=== PATIENT | male | born 1995 | race Caucasian/White ===

== ENCOUNTER 2017-05-30 02:58 | Emergency (ER) | payer OTHER ==
[~2017-05-30] VITALS: Ht 185.4 cm; Wt 83.1 kg
[2017-05-30 03:01] VITALS: TEMP 36.6; Ht 185.4 cm; Wt 83.1 kg
[2017-05-30] MEDS ORDERED: KETOROLAC TROMETHAMINE 30 MG/ML VIAL IV STA (03:13)
[2017-05-30] MEDS ORDERED: AMPICILLIN/SULBACTAM SOD INJ 3,000 MG in SODIUM CHLORIDE 0.9% 100ML 100 ML IV STA (03:13)
[2017-05-30] MEDS ORDERED: DEXAMETHASONE SOD INJ 10 MG/ML VIAL IV ONE (03:15)
[2017-05-30] MEDS ORDERED: SODIUM CHLORIDE 0.9% 1000ML 1,000 ML, SODIUM CHLORIDE 0.9% 1000ML 1,000 ML IV ONE (03:15)
[2017-05-30] MEDS ORDERED: ACETAMINOPHEN IV 100 ML IV ONE (03:15)
[2017-05-30] MEDS ORDERED: IBUP-1050 PO (03:28)
[2017-05-30 03:38] LABS: BASO % 0.2 %; BASO ABS # 0.04 K/uL (0-0.2); COMPLETE YES; EOS % 2.4 %; HEMATOCRIT 45.7 % (42-52); IG% 0.4 %; LYMPH % 14.5 %; LYMPH ABS # 3.16 K/uL (1.2-3.4); MEAN CELL VOLUME 85.7 fL (80-100); MEAN CORPUSCULAR HEMOGLOBIN 30.6 pg (25-34); MEAN CORPUSCULAR HGB CONC 35.7 g/dl (32-36); MEAN PLATELET VOLUME 9.5 fL (7.4-10.4); MONO % 8.6 %; NEUT % 73.9 %; PLATELET COUNT 210 K/uL (130-400); RED BLOOD COUNT 5.33 M/uL (4.7-6.1); WHITE BLOOD COUNT 21.79 K/uL (4.8-10.8)
[2017-05-30 03:51] LABS: BUN/CREATININE RATIO 17.3 (10-20); CALCIUM 8.5 mg/dl (8.5-10.1); CREATININE 0.83 mg/dl (0.60-1.40); POTASSIUM 3.7 mmol/L (3.5-5.1)
[2017-05-30 04:50] VITALS: BP 123/78; PULSE 77; O2SAT 99
--- NOTE | 2017-05-30 07:18 | EMERGENCY ROOM VISIT NOTE ---
History First contact with patient: 03:08 Chief Complaint: SHORTNESS OF BREATH Stated Complaint: CAN'T BREATHE Nursing Triage Summary: Patient reports recent abx finished course for strep throat. Patient reports swelling in back of throat and difficulty breathing when lying flat. Patient has swelling to left side of back of throat. History of Present Illness The patient is a 21 year old male who presents to the Emergency Room with complaints of severe sore throat symptoms. The patient was diagnosed with strep pharyngitis about a week ago and completed a 7 day course of clindamycin yesterday. The patient states that he took a nap around 15 hours ago, and woke up around 8 hours ago with worsening pain. The patient feels swelling in his throat as well as left-sided throat pain. The patient's discomfort worsens when he lays flat. He has had intermittent fever at home. He is handling his own secretions and is able to talk as normal. He does not report chronic medical disease. He rates his discomfort a 9/10. Review of Systems More than 10 systems were reviewed and otherwise negative with the exception of history of present illness. Past Medical/Surgical History No chronic medical disease Social History Smoking Status: Never Smoker Current/Historical Medications Scheduled PRN Ibuprofen (Advil), 200-600 MG PO Q4H PRN for Pain Physical Exam Vital Signs Date Time Temp Pulse Resp B/P (MAP) Pulse Ox O2 Delivery O2 Flow Rate FiO2 05/30/17 04:50 77 16 123/78 99 05/30/17 03:01 36.6 84 16 152/99 99 Room Air Physical Exam VITALS: Vitals are noted on the nurse's note and reviewed by myself. Vital signs stable. GENERAL: Mildly ill-appearing white male who is handling his own secretions. He is nontoxic. HEAD: Normocephalic atraumatic. EARS: External ear normal. External auditory canals clear, tympanic membranes pearly gonzalez without erythema or effusion bilaterally. EYES: Pupils equal round and reactive to light and accommodation. Conjunctivae without injection, sclerae without icterus. Extraocular movements intact. NOSE: Patent, turbinates without inflammation or discharge. MOUTH: Mucous membranes moist. Tonsils are significantly enlarged at 4+ and touching midline. The uvula is midline. There is soft palate edema concerning for abscess. The airway is patent. NECK: Supple without nuchal rigidity. Shotty lymphadenopathy HEART: Regular rate and rhythm without murmurs gallops or rubs. LUNGS: Clear to auscultation bilaterally without wheezes, rales or rhonchi. No retractions or accessory muscle use. Medical Decision & Procedures Laboratory Results 05/30/17 03:15 Red Blood Count 5.33, Mean Corpuscular Volume 85.7, Mean Corpuscular Hemoglobin 30.6, Mean Corpuscular Hemoglobin Concent 35.7, Mean Platelet Volume 9.5, Neutrophils (%) (Auto) 73.9, Lymphocytes (%) (Auto) 14.5, Monocytes (%) (Auto) 8.6, Eosinophils (%) (Auto) 2.4, Basophils (%) (Auto) 0.2, Neutrophils # (Auto) 16.11, Lymphocytes # (Auto) 3.16, Monocytes # (Auto) 1.87, Eosinophils # (Auto) 0.53, Basophils # (Auto) 0.04 05/30/17 03:15 Test 05/30/17 03:15 White Blood Count 21.79 K/uL (4.8-10.8) Red Blood Count 5.33 M/uL (4.7-6.1) Hemoglobin 16.3 g/dL (14.0-18.0) Hematocrit 45.7 % (42-52) Mean Corpuscular Volume 85.7 fL (80-100) Mean Corpuscular Hemoglobin 30.6 pg (25-34) Mean Corpuscular Hemoglobin Concent 35.7 g/dl (32-36) Platelet Count 210 K/uL (130-400) Mean Platelet Volume 9.5 fL (7.4-10.4) Neutrophils (%) (Auto) 73.9 % Lymphocytes (%) (Auto) 14.5 % Monocytes (%) (Auto) 8.6 % Eosinophils (%) (Auto) 2.4 % Basophils (%) (Auto) 0.2 % Neutrophils # (Auto) 16.11 K/uL (1.4-6.5) Lymphocytes # (Auto) 3.16 K/uL (1.2-3.4) Monocytes # (Auto) 1.87 K/uL (0.11-0.59) Eosinophils # (Auto) 0.53 K/uL (0-0.5) Basophils # (Auto) 0.04 K/uL (0-0.2) RDW Standard Deviation 38.2 fL (36.4-46.3) RDW Coefficient of Variation 12.1 % (11.5-14.5) Immature Granulocyte % (Auto) 0.4 % Immature Granulocyte # (Auto) 0.08 K/uL (0.00-0.02) Anion Gap 4.0 mmol/L (3-11) Est Creatinine Clear Calc Drug Dose 160.4 ml/min Estimated GFR () 146.8 Estimated GFR (Non- 126.7 BUN/Creatinine Ratio 17.3 (10-20) Calcium Level 8.5 mg/dl (8.5-10.1) Total Bilirubin 0.7 mg/dl (0.2-1) Aspartate Amino Transf (AST/SGOT) 23 U/L (15-37) Alanine Aminotransferase (ALT/SGPT) 44 U/L (12-78) Alkaline Phosphatase 103 U/L (45-117) Total Protein 8.5 gm/dl (6.4-8.2) Albumin 4.3 gm/dl (3.4-5.0) Globulin 4.2 gm/dl (2.5-4.0) Albumin/Globulin Ratio 1.0 (0.9-2) Monoscreen NEG (NEG) Medications Administered Medications (Trade) Dose Ordered Sig/Ricki Route Start Time Stop Time Status Last Admin Dose Admin Dexamethasone Sodium Phosphate (Decadron Inj) 10 mg NOW ONCE IV 05/30/17 03:15 05/30/17 03:17 DC 05/30/17 03:47 10 MG Ketorolac Tromethamine (Toradol Inj) 30 mg NOW STAT IV 05/30/17 03:13 05/30/17 03:17 DC 05/30/17 03:48 30 MG Sodium Chloride/ Sodium Chloride 2,000 ml @ 999 mls/hr Q2H1M ONCE IV 05/30/17 03:15 05/30/17 05:15 DC 05/30/17 03:15 999 MLS/HR Ampicillin Sodium/ Sulbactam Sodium 3000 mg/Sodium Chloride 108 ml @ 200 mls/hr NOW STAT IV 05/30/17 03:13 05/30/17 03:45 DC 05/30/17 03:13 200 MLS/HR Acetaminophen 100 ml @ 400 mls/hr NOW ONCE IV 05/30/17 03:15 05/30/17 03:29 DC 05/30/17 03:48 400 MLS/HR ED Course Physical exam and history were performed. Nursing notes, EMR, and Medication List were personally reviewed. Patient appears to have a left-sided peritonsillar abscess after being treated with clindamycin for strep throat. The patient does not have impending airway compromise. He is able to phonate and is without trismus. He does have noted soft palate edema concerning for the abscess. IV access was established and labs were obtained. The patient was treated with IV steroids, IV pain medication, and IV antibiotics. He was hydrated with 2 L saline. The patient's blood work is as above and was reviewed. He does have a significantly elevated white blood cell count of 22,000. He does not have a gross anemia, bandemia, or significant electrolyte imbalance. His Monospot is negative. I discussed the case with the on-call ENT, Dr. Gutierrez, who indicated that he would not be coming into the ER this morning to see the patient. The patient is to follow-up with Dr Gutierrez in his office at 8 AM, roughly 3-1/2 hours from now, for further care and management. I discussed this recommendation with the patient, who does feel much better after hydration and medication. The patient will be given information to contact the ER if he has any difficulty with seeing Dr. Gutierrez this morning. The patient was otherwise invited back to the ER anytime and voiced understanding of this plan. He rated his discomfort a 7/75 departure. The chart was completed utilizing [employer] Speech Voice Recognition Software. Grammatical errors, random word insertions, pronoun errors, and incomplete sentences are an occasional consequence of this system due to software limitations, ambient noise, and hardware issues. Any formal questions or concerns about the content, text, or information contained within the body of this dictation should be directly addressed to the provider for clarification. . Medical Decision Differential diagnosis: Etiologies such as viral syndrome, tonsillitis, streptococcal pharyngitis, mononucleosis, peritonsillar abscess, retropharyngeal abscess, otitis, pneumonia , influenza, as well as others were entertained. Medication Reconcilliation Current Medication List: was personally reviewed by me Blood Pressure Screening Patient's blood pressure: Normal blood pressure Impression Primary Impression: Peritonsillar abscess Departure Information Dispostion Home / Self-Care Condition GOOD Referrals Damaso Gutierrez D.O. Forms HOME CARE DOCUMENTATION FORM, IMPORTANT VISIT INFORMATION Patient Instructions Peritonsillar Abscess, My [facility] Additional Instructions You were seen and evaluated today on an emergency basis only. This is not a substitute for, or an effort to provide, complete comprehensive medical care. It is not possible to recognize and treat all injuries or illnesses in a single emergency department visit. For this reason it is recommended that you followup with [facility], Dr Gutierrez's office, at 8am (roughly 3 hours from now). Do not eat or drink anything until you are seen by Dr Gutierrez. We did speak directly with Dr. Gutierrez from the emergency department. If you have difficulty with being seen at 8am please call back to the emergency department at [phone] and ask for a community case manager. You are welcome to return to the emergency department anytime with new, worsening, or concerning symptoms.
== END 2017-05-30 04:52 | disposition home or self-care (01) ==
LOC: C.EDB 02:59
DX: J36 Peritonsillar abscess (principal)

== ENCOUNTER 2017-06-04 13:23 | Emergency (ER) | payer OTHER ==
[~2017-06-04] VITALS: Ht 185.4 cm; Wt 82.1 kg
[~2017-06-04 13:23] MED LIST: IBUP-1050 PO
[2017-06-04 13:27] VITALS: TEMP 36.5; Ht 185.4 cm; Wt 82.1 kg
[2017-06-04] MEDS ORDERED: SODIUM CHLORIDE 0.9% 1000ML 1,000 ML IV STA (13:46)
--- NOTE | 2017-06-04 13:55 | EMERGENCY ROOM VISIT NOTE ---
History First contact with patient: 13:36 Chief Complaint: CARDIAC ASSESSMENT Stated Complaint: SOB, TINGLING/NUMB IN LEGS, LIGHTHEADED History of Present Illness The patient is a 21 year old male who presents to the Emergency Room with complaints of short of breath for the past few days. Patient states his symptoms initially started about a week ago associated with a sore throat and swelling in his throat, states he was diagnosed with tonsillitis and is being treated by ENT, on Augmentin and prednisone for the past several days and states his throat has been improving greatly. Over the past few nights, the patient states he has had a feeling of not being able to breathe when he is lying down in bed, states he feels like he is not getting enough air. This causes him to feel lightheaded, tingling in his arms and legs, and like he might pass out. He states he feels better if he gets up and walks around or distracts himself. He denies any chest pain, palpitations, syncope, abdominal pain, nausea or vomiting, fevers/chills, urinary symptoms, itching or rash. Review of Systems A complete 10 point review of systems was reviewed with the patient with pertinent positives and negatives as per history of present illness. All else were negative. Past Medical/Surgical History Tonsillitis Social History Smoking Status: Never Smoker Alcohol Use: none Drug Use: none Marital Status: single Occupation Status: [employer] student Current/Historical Medications Scheduled Amoxicillin & Pot Clavulanate (Augmentin 875-125 mg), 1 TAB PO BID Prednisone (Prednisone), 10 MG PO DIRECTED Allergies NKA Physical Exam Vital Signs Date Time Temp Pulse Resp B/P (MAP) Pulse Ox O2 Delivery O2 Flow Rate FiO2 06/04/17 18:49 88 20 132/78 98 06/04/17 17:47 88 06/04/17 17:20 79 16 135/64 98 Room Air 06/04/17 15:16 83 16 141/22 98 Room Air 06/04/17 14:17 76 12 135/81 99 81 155/70 100 164/79 06/04/17 14:07 Room Air 06/04/17 14:07 Room Air 06/04/17 13:48 93 06/04/17 13:27 36.5 93 20 133/94 99 Room Air Physical Exam CONSTITUTIONAL: No acute distress. Well appearing and well nourished. Alert and oriented X 4 with normal affect. HEENT: Normocephalic, atraumatic. Pupils equal, round and reactive to light, EOMI. TMs normal. Pharynx mildly erythematous and moderate bilateral tonsillar swelling, no exudate, uvula is midline, no trismus. Moist mucous membranes. NECK: Supple, full active range of motion without discomfort. No cervical adenopathy. RESPIRATORY: Clear to auscultation bilaterally with no wheezing, crackles, rhonchi or stridor. Equal expansion bilaterally. CARDIOVASCULAR: Regular rate and rhythm with no murmurs, rubs or gallops. Normal peripheral perfusion. No edema. GASTROINTESTINAL: Soft, nontender, nondistended. Bowel sounds present in all quadrants. MUSCULOSKELETAL: Full range of motion of all joints without discomfort. INTEGUMENTARY: No rash or other significant dermatologic conditions noted. NEUROLOGIC: Cranial nerves II-XII grossly intact. No focal neurologic deficits noted. Normal strength, normal sensation, normal coordination, normal gait, normal speech. Medical Decision & Procedures ER Provider Diagnostic Interpretation: SOFT TISSUE NECK WITH HISTORY: 21 years-old Male eval retropharyngeal abscess acute stroke pain with concern for retropharyngeal abscess COMPARISON: None available TECHNIQUE: Multiple axial CT images of the soft tissues of the neck were obtained following the intravenous administration of 116 mL Optiray 320. A dose lowering technique was used consistent with the principals of ALARA. FINDINGS: There is an irregular peripherally enhancing collection measuring 1.0 x 0.6 x 1.2 cm within the left peritonsillar tissues, nicely seen on image 166 of series 3. Bilateral palatine tonsils are moderately enlarged causing moderate narrowing of the adjacent airway. No retropharyngeal abscess identified. Adenoid tonsils and lingual tonsils are mildly enlarged. The epiglottis, aryepiglottic folds and true vocal cords appear to be within normal limits. Mildly prominent bilateral level 2 lymph nodes are likely reactive. Soft tissues are unremarkable. The orbits and imaged intracranial structures are unremarkable. Mild right-sided ethmoid sinus disease. Mastoid air cells and middle ear cavities are generally clear. There is straightening of the normal cervical lordosis. No fracture identified. No dominant thyroid nodule. Lung apices are clear. IMPRESSION: Moderate enlargement of the bilateral palatine tonsils suggests tonsillitis with associated moderate narrowing of the oropharynx. Small peripherally enhancing collection measuring up to 1.2 cm adjacent to the left palatine tonsil suggests developing peritonsillar abscess without retropharyngeal extension. Laboratory Results 06/04/17 14:00 Red Blood Count 5.39, Mean Corpuscular Volume 85.2, Mean Corpuscular Hemoglobin 30.6, Mean Corpuscular Hemoglobin Concent 35.9, Mean Platelet Volume 9.6, Neutrophils (%) (Auto) 73.1, Lymphocytes (%) (Auto) 16.4, Monocytes (%) (Auto) 8.3, Eosinophils (%) (Auto) 1.0, Basophils (%) (Auto) 0.3, Neutrophils # (Auto) 8.55, Lymphocytes # (Auto) 1.92, Monocytes # (Auto) 0.97, Eosinophils # (Auto) 0.12, Basophils # (Auto) 0.04 06/04/17 14:00 Test 06/04/17 14:00 06/04/17 14:29 White Blood Count 11.71 K/uL (4.8-10.8) Red Blood Count 5.39 M/uL (4.7-6.1) Hemoglobin 16.5 g/dL (14.0-18.0) Hematocrit 45.9 % (42-52) Mean Corpuscular Volume 85.2 fL (80-100) Mean Corpuscular Hemoglobin 30.6 pg (25-34) Mean Corpuscular Hemoglobin Concent 35.9 g/dl (32-36) Platelet Count 243 K/uL (130-400) Mean Platelet Volume 9.6 fL (7.4-10.4) Neutrophils (%) (Auto) 73.1 % Lymphocytes (%) (Auto) 16.4 % Monocytes (%) (Auto) 8.3 % Eosinophils (%) (Auto) 1.0 % Basophils (%) (Auto) 0.3 % Neutrophils # (Auto) 8.55 K/uL (1.4-6.5) Lymphocytes # (Auto) 1.92 K/uL (1.2-3.4) Monocytes # (Auto) 0.97 K/uL (0.11-0.59) Eosinophils # (Auto) 0.12 K/uL (0-0.5) Basophils # (Auto) 0.04 K/uL (0-0.2) RDW Standard Deviation 38.7 fL (36.4-46.3) RDW Coefficient of Variation 12.5 % (11.5-14.5) Immature Granulocyte % (Auto) 0.9 % Immature Granulocyte # (Auto) 0.11 K/uL (0.00-0.02) D-Dimer 470 ug/L FEU (0-500) Urine Color YELLOW Urine Appearance CLEAR (CLEAR) Urine pH 7.0 (4.5-7.5) Urine Specific [place] 1.017 (1.000-1.030) Urine Protein NEG (NEG) Urine Glucose (UA) NEG (NEG) Urine Ketones NEG (NEG) Urine Occult Blood NEG (NEG) Urine Nitrite NEG (NEG) Urine Bilirubin NEG (NEG) Urine Urobilinogen NEG (NEG) Urine Leukocyte Esterase NEG (NEG) Anion Gap 9.0 mmol/L (3-11) Est Creatinine Clear Calc Drug Dose 170.7 ml/min Estimated GFR () > 150.0 Estimated GFR (Non- 129.9 BUN/Creatinine Ratio 18.5 (10-20) Calcium Level 9.1 mg/dl (8.5-10.1) Total Bilirubin 0.3 mg/dl (0.2-1) Direct Bilirubin < 0.1 mg/dl (0-0.2) Aspartate Amino Transf (AST/SGOT) 20 U/L (15-37) Alanine Aminotransferase (ALT/SGPT) 60 U/L (12-78) Alkaline Phosphatase 93 U/L (45-117) Total Protein 8.8 gm/dl (6.4-8.2) Albumin 4.3 gm/dl (3.4-5.0) Bedside Glucose 93 mg/dl (70-99) Medications Administered Medications (Trade) Dose Ordered Sig/Ricki Route Start Time Stop Time Status Last Admin Dose Admin Sodium Chloride 1,000 ml @ 999 mls/hr Q1H1M STAT IV 06/04/17 13:46 06/04/17 14:46 DC 06/04/17 14:45 999 MLS/HR Dexamethasone Sodium Phosphate (Decadron Inj) 10 mg NOW ONCE IV 06/04/17 17:15 06/04/17 17:16 DC 06/04/17 17:15 10 MG Ampicillin Sodium/ Sulbactam Sodium 3000 mg/Sodium Chloride 108 ml @ 200 mls/hr ONE ONCE IV 06/04/17 17:15 06/04/17 17:47 DC 06/04/17 17:41 200 MLS/HR Medical Decision CC: Patient presenting with complaint of shortness of breath/orthopnea Interpretation of Labs: Leukocytosis (improving), no anemia, no significant electrolyte abnormalities, normal renal function. Negative d-dimer. Differential Diagnosis: Includes, but not limited to peritonsillar abscess, retropharyngeal abscess, pneumonia, URI, allergic reaction, pharyngeal swelling , PE, anxiety, among others. Medication Reconciliation: I attest that I have personally reviewed the patient' s current medication list. Vital signs review: I reviewed the patient's vital signs and interpret them as follows: T: Afebrile; BP: Hypertensive; HR: Tachycardic; RR: Within normal limits; Pulse Ox: Within normal limits on room air. Summary: Patient was evaluated at bedside, history of physical exam performed. Patient is alert and in no acute distress, no signs of increased work of breathing or respiratory distress, resting calmly in the stretcher. The patient's airway is patent, no stridor or wheezing, lungs are clear with good air movement. Evaluation of his throat shows moderate bilateral edema, no uvular deviation, no trismus, and no unilateral swelling. Patient's voice is normal. Review of the chart reveals the patient was evaluated in this emergency department on 05/30 and diagnosed with a left peritonsillar abscess. He had follow-up with ENT that day. Patient states that ENT told him there was nothing to be drained from his throat , and he was placed on Augmentin and prednisone, which she has been taking. Patient does report that his overall symptoms of throat swelling has greatly improved since being on antibiotics and steroids. Orders were placed at bedside for labs, IV fluids, EKG, chest x-ray, CT neck soft tissue with IV contrast to evaluate for retropharyngeal abscess. Patient discussed with Dr. Daley, who agrees with my assessment and plan. Labs reviewed as above, significantly improved leukocytosis. No acute abnormalities. CT imaging is negative for retropharyngeal abscess, does show a small left peritonsillar abscess and moderate bilateral tonsillar swelling. The patient was given an additional dose of IV Unasyn, as well as a dose of IV Decadron. Upon further questioning of the patient, it seems that he has been taking his prednisone incorrectly, instead of taking 40 mg once daily, he has taken 10 mg 4 times a day, noting he has been taking some of this before bed. I educated the patient on proper use of his prednisone taper. I also instructed him to take the medication in the morning, as the steroid may be interfering with his sleep. The patient verbalized understanding. I discussed the patient with Dr. Gutierrez's nurse Criselda, who relayed the patient' s information to him. He states he would not change any of the patient's management, and patient should keep his follow-up appointment on Sunday. I discussed all results with the patient and plan for discharge. I did encourage him to keep his follow-up appointment on Sunday, he was comfortable with this plan. Patient reassessed multiple times throughout ED stay, he reports he is feeling improved. Patient was updated on all results and plan for discharge, with emphasis on his follow-up scheduled for Sunday, which I did strongly encourage him to keep. The patient was also given return precautions should his symptoms worsen, he verbalized understanding. Patient was discharged home in stable condition and ambulatory. Medication Reconcilliation Current Medication List: was personally reviewed by me Blood Pressure Screening Patient's blood pressure: Elevated blood pressure Blood pressure disposition: Elevated BP felt to be situational Impression Primary Impression: Orthopnea Additional Impression: Peritonsillar abscess Departure Information Dispostion Home / Self-Care Condition GOOD Referrals No Doctor, Assigned (PCP) Damaso Gutierrez D.O. Patient Instructions ED Peritonsillar Infec Abx No I Yana, My [facility] Additional Instructions Continue taking your Augmentin as prescribed, until you complete the course. You should take a daily probiotic to help protect your gut health while on the antibiotics. Continue taking the prednisone taper as prescribed. Take this once a day, with food, in the morning. Drink plenty of fluids to stay well hydrated. Sleep with your head propped up on some pillows or in a recliner to help improve your comfort when sleeping. Keep your scheduled follow-up with ENT on Sunday, or call for a sooner appointment if you feel your symptoms are worsening. Please return to the emergency department for increased difficulties in breathing, chest pain, wheezing or high pitched noises with breathing, difficulty swallowing, muffled voice, or fever/chills. School Instructions Return To School: 1 day Problem Qualifiers
[2017-06-04] MEDS ORDERED: PRED10TA PO (14:00)
[2017-06-04] MEDS ORDERED: AMOX875T PO (14:00)
[2017-06-04 14:08] LABS: BASO % 0.3 %; BASO ABS # 0.04 K/uL (0-0.2); COMPLETE YES; HEMATOCRIT 45.9 % (42-52); IG% 0.9 %; LYMPH % 16.4 %; LYMPH ABS # 1.92 K/uL (1.2-3.4); MEAN CELL VOLUME 85.2 fL (80-100); MEAN CORPUSCULAR HEMOGLOBIN 30.6 pg (25-34); MEAN CORPUSCULAR HGB CONC 35.9 g/dl (32-36); MEAN PLATELET VOLUME 9.6 fL (7.4-10.4); MONO % 8.3 %; NEUT % 73.1 %; PLATELET COUNT 243 K/uL (130-400); RED BLOOD COUNT 5.39 M/uL (4.7-6.1); WHITE BLOOD COUNT 11.71 K/uL (4.8-10.8)
[2017-06-04 14:33] LABS: ALT/SGPT 60 U/L (12-78); AST/SGOT 20 U/L (15-37); BLOOD UREA NITROGEN 14 mg/dl (7-18); BUN/CREATININE RATIO 18.5 (10-20); CALCIUM 9.1 mg/dl (8.5-10.1); CARBON DIOXIDE 24 mmol/L (21-32); CHLORIDE 105 mmol/L (98-107); CREATININE 0.78 mg/dl (0.60-1.40); GLUCOSE 95 mg/dl (70-99); POTASSIUM 3.4 mmol/L (3.5-5.1); SODIUM 138 mmol/L (136-145)
[2017-06-04 14:35] LABS: ALKALINE PHOSPHATASE 93 U/L (45-117)
[2017-06-04 14:41] LABS: URINE APPEARANCE CLEAR (CLEAR); URINE BILIRUBIN NEG (NEG); URINE COLOR YELLOW; URINE NITRITE NEG (NEG); URINE SPECIFIC GRAVITY 1.017 (1.000-1.030); UROBILINOGEN NEG (NEG)
[2017-06-04 14:46] LABS: MANUAL MICROSCOPIC REQUIRED? NO; REVIEW REQ? NO
--- NOTE | 2017-06-04 15:15 | DIAGNOSTIC IMAGING REPORT ---
CHEST 2 VIEWS ROUTINE CLINICAL HISTORY: Altered mental status. Weakness. Shortness of breath. COMPARISON STUDY: No previous studies for comparison. FINDINGS: Lung volumes are normal. Lungs are clear. No pneumothorax or pleural effusion is present. Pulmonary vascularity is normal. Cardiomediastinal silhouette is normal. IMPRESSION: No acute cardiopulmonary findings. Electronically signed by: Greg Ross M.D. 06/04/2017 3:13 PM Dictated Date/Time: 06/04/2017 3:13 PM
[2017-06-04] MEDS ORDERED: OPTIRAY 320 IV PRN (15:30)
--- NOTE | 2017-06-04 16:26 | DIAGNOSTIC IMAGING REPORT ---
SOFT TISSUE NECK WITH HISTORY: 21 years-old Male eval retropharyngeal abscess acute stroke pain with concern for retropharyngeal abscess COMPARISON: None available TECHNIQUE: Multiple axial CT images of the soft tissues of the neck were obtained following the intravenous administration of 116 mL Optiray 320. A dose lowering technique was used consistent with the principals of PAUL. FINDINGS: There is an irregular peripherally enhancing collection measuring 1.0 x 0.6 x 1.2 cm within the left peritonsillar tissues, nicely seen on image 166 of series 3. Bilateral palatine tonsils are moderately enlarged causing moderate narrowing of the adjacent airway. No retropharyngeal abscess identified. Adenoid tonsils and lingual tonsils are mildly enlarged. The epiglottis, aryepiglottic folds and true vocal cords appear to be within normal limits. Mildly prominent bilateral level 2 lymph nodes are likely reactive. Soft tissues are unremarkable. The orbits and imaged intracranial structures are unremarkable. Mild right-sided ethmoid sinus disease. Mastoid air cells and middle ear cavities are generally clear. There is straightening of the normal cervical lordosis. No fracture identified. No dominant thyroid nodule. Lung apices are clear. IMPRESSION: Moderate enlargement of the bilateral palatine tonsils suggests tonsillitis with associated moderate narrowing of the oropharynx. Small peripherally enhancing collection measuring up to 1.2 cm adjacent to the left palatine tonsil suggests developing peritonsillar abscess without retropharyngeal extension. The above report was generated using voice recognition software. It may contain grammatical, syntax or spelling errors. Electronically signed by: Marcus Davis M.D. 06/04/2017 4:25 PM Dictated Date/Time: 06/04/2017 4:18 PM
[2017-06-04] MEDS ORDERED: DEXAMETHASONE SOD INJ 10 MG/ML VIAL IV ONE (17:15)
[2017-06-04] MEDS ORDERED: AMPICILLIN/SULBACTAM SOD INJ 3,000 MG in SODIUM CHLORIDE 0.9% 100ML 100 ML IV ONE (17:15)
[2017-06-04 18:49] VITALS: BP 132/78; PULSE 88; O2SAT 98
== END 2017-06-04 18:50 | disposition home or self-care (01) ==
LOC: C.EDB 13:25
DX: R06.01 Orthopnea (principal); J36 Peritonsillar abscess

== ENCOUNTER 2017-08-26 07:56 | Emergency (ER) | payer OTHER ==
[~2017-08-26] VITALS: Ht 185.4 cm; Wt 82.1 kg
[~2017-08-26 07:56] MED LIST changes: -IBUP-1050 PO; +IBUP-1450 PO; +TRAMTAB5 PO
[2017-08-26 07:58] VITALS: BP 134/62; PULSE 98; TEMP 36.6; O2SAT 96; Ht 185.4 cm; Wt 82.1 kg
[2017-08-26] MEDS ORDERED: AMOXICILLIN/CLAVULANATE TAB 875 MG TAB PO ONE (08:15)
[2017-08-26] MEDS ORDERED: AMOX875T PO (08:15)
--- NOTE | 2017-08-26 10:16 | EMERGENCY ROOM VISIT NOTE ---
History Report prepared by Dre: Emile Zavala Under the Supervision of: Mauri HannahO. First contact with patient: 08:03 Chief Complaint: SORETHROAT Stated Complaint: SWOLLEN TONSILS/THROAT,PAIN WHEN SWALLOWING History of Present Illness The patient is a 21 year old male who presents to the Emergency Room with complaints of worsening sore throat starting two days ago. The patient states that his tonsils are swollen, and the pain is worsened with swallowing. He states that he went to his PCP, and they did a strep test and CBC which both came back normal. The patient reports that he has been having recurring swollen tonsils and was last here June 23 and was hospitalized. The patient reports that he currently lives in [facility], and states that every time that he comes back to [place] he gets a sore throat. Pt denies headache, change in vision, fevers, runny nose, cough, ear pain, chest pain, shortness of breath , nausea, vomiting, diarrhea, pain with urination, and melena. Patient has been admitted before for a peritonsillar abscess. Source of History: patient Onset: two days ago Position: throat Timing: worsening Modifying Factors (Worsening): other (swallowing) Associated Symptoms: No fevers, No cough Review of Systems See HPI for pertinent positives & negatives. A total of 10 systems reviewed and were otherwise negative. Past Medical & Surgical Medical Problems: (1) No active medical problems Family History No pertinent family history Social History Smoking Status: Never Smoker Alcohol Use: occasionally Drug Use: none Marital Status: single Housing Status: lives with roommate Occupation Status: [employer] student Current/Historical Medications Scheduled Amoxicillin & Pot Clavulanate (Augmentin 875-125 mg), 875 MG PO BID Allergies Coded Allergies: No Known Allergies (Unverified , 08/26/17) Physical Exam Vital Signs Date Time Temp Pulse Resp B/P (MAP) Pulse Ox O2 Delivery O2 Flow Rate FiO2 08/26/17 07:58 36.6 98 20 134/62 96 Room Air Physical Exam GENERAL: Sitting up in bed, alert, well appearing, well nourished, no distress, non-toxic EYE EXAM: normal conjunctiva. OROPHARYNX: Tonsils are hypertrophic and erythematous. Faint exudates bilaterally. Lips, buccal mucosa, and tongue normal and mucous membranes are moist NECK: supple, no nuchal rigidity, no adenopathy, non-tender LUNGS: Clear to auscultation. Normal chest wall mechanics HEART: no murmurs, S1 normal and S2 normal ABDOMEN: abdomen soft, non-tender, normo-active bowel sounds, no masses, no rebound or guarding. UPPER EXTREMITIES: upper extremities are grossly normal. LOWER EXTREMITIES: No pitting edema. NEURO EXAM: Normal sensorium. Medical Decision & Procedures Medications Administered Medications (Trade) Dose Ordered Sig/Ricki Route Start Time Stop Time Status Last Admin Dose Admin Prednisone (PredniSONE TAB) 60 mg NOW STAT PO 08/26/17 08:10 08/26/17 08:12 DC 08/26/17 08:21 60 MG Amoxicillin/ Clavulanate Potassium (Augmentin Tab) 875 mg NOW ONCE PO 08/26/17 08:15 08/26/17 08:16 DC 08/26/17 08:21 875 MG ED Course ED COURSE: Vital signs were reviewed and showed normal vitals. The patients medical record was reviewed The above diagnostic studies were performed and reviewed. ED treatments and interventions as stated above. 0803: The patient was evaluated in room A12. A complete history and physical examination was performed. 0810: Prednisone 60mg PO 0815: Augmentin 875mg PO 0820: Upon reevaluation, the patient is doing well.I discussed my findings with the patient and he understands and agrees with the treatment plan. Based on the patients age, coexisting illnesses, and exam findings the decision to treat as an outpatient was made. The patient remained stable while under my care. The patient appeared well at the time of discharge. Medical Decision Differential diagnosis includes etiologies such as viral syndrome, tonsillitis, streptococcal pharyngitis, mononucleosis, peritonsillar abscess, retropharyngeal abscess, otitis, pneumonia, influenza, as well as others were entertained. Patient is a 21-year-old male with past medical history of peritonsillar abscess that presents to ER for sore throat. He was seen by his PCP and had a rapid strep done which was negative. He also admits that he had unremarkable CBC. On exam his tonsils are enlarged. He is able tolerate his secretions. Normal phonation. Normal range of motion of neck. No submandibular swelling to suggest Devin's angina. Patient was given steroids and Augmentin. He was unhappy as we were unable to give him a clear cause of his recurrent tonsillitis. I did discuss with his mother. Recommended following up with ENT. He notes the last time he was there they recommended having his tonsils removed and he did not want to do this. As he is well-appearing with normal phonation tolerating secretions without signs of abscess I updated him at bedside and recommended following back up with ENT has now patient. Tylenol and Motrin as needed for pain. Discussed with Pt concerning signs and symptoms to watch out for. Pt was instructed to follow up with their PCP and discussed with the patient their option to return to the ED at anytime for persistent or worsening symptoms. The appropriate anticipatory guidance and out-patient management, including indications for return to the emergency department, were explained at length to the patient and understood. Medication Reconcilliation Current Medication List: was personally reviewed by me Blood Pressure Screening Patient's blood pressure: Normal blood pressure Impression Primary Impression: Tonsillitis Scribe Attestation The scribe's documentation has been prepared under my direction and personally reviewed by me in its entirety. I confirm that the note above accurately reflects all work, treatment, procedures, and medical decision making performed by me. Departure Information Dispostion Home / Self-Care Prescriptions Amoxicillin & Pot Clavulanate (Augmentin 875-125 mg) 1 Tab Tab 875 MG PO BID for 10 Days, TAB Prov: Michael Moore, DO 08/26/17 Referrals No Doctor, Assigned (PCP) Forms HOME CARE DOCUMENTATION FORM, IMPORTANT VISIT INFORMATION Patient Instructions ED Strep Pharyngitis [facility] Additional Instructions Please follow up with your primary care doctor with in the next 24 hours. Any worsening of your symptoms, please return to the ED immediately. This includes any fevers greater than 100.4, worsening pain, chest pain, shortness breath, persistent nausea, vomiting, unable to eat or drink, or any other concerning signs or symptoms from your standpoint. Please take antibiotics as prescribed. These follow-up with ENT.
== END 2017-08-26 08:24 | disposition home or self-care (01) ==
LOC: C.EDB 07:57 → C.EDA 08:24
DX: J03.90 Acute tonsillitis, unspecified (principal)

== ENCOUNTER 2017-08-27 17:14 | Emergency (ER) | payer OTHER ==
[~2017-08-27] VITALS: Ht 185.4 cm; Wt 81.0 kg
[~2017-08-27 17:14] MED LIST changes: +AMOX875T PO; -IBUP-1450 PO; -TRAMTAB5 PO
[2017-08-27 17:38] VITALS: TEMP 36.9; Ht 185.4 cm; Wt 81.0 kg
--- NOTE | 2017-08-27 18:10 | EMERGENCY ROOM VISIT NOTE ---
History First contact with patient: 17:42 Chief Complaint: THROAT PAIN/INJURY Stated Complaint: CHILLS,SWOLLEN TONSILS,TROUBLE BREATHING,HARD TO S History of Present Illness The patient is a 21 year old male who presents to the Emergency Room with complaints of persistent swollen tonsils. The patient was seen here yesterday for the same symptoms. He was not happy with his treatment. He states he felt like he was rushed in and out of the room. The patient states that he has a relative who is a physician and he told her with dosing he was given of Augmentin. He told her he was only taking 875 mg once a day. Looking at the prescription bottle it does say 875 twice a day. The patient states that he went to [facility] this morning again for his symptoms and was placed on prednisone 20 mg daily. He took one dose today. The patient states that he has had swollen tonsils ever since he started at [employer] in fall. He states when he was home in [facility] over winter break he was fine. He states as soon as he came back he started with symptoms again of swollen tonsils and difficulty swallowing secondary to the enlarged tonsils. The patient denies any fever but does admit to some chills. The patient denies any other URI symptoms of head congestion, ear pain, cough. The patient does admit to taking Zyrtec intermittently but is not taking it on a daily basis. He already has an appointment set up with Dr. Anton on September 06 and an appointment with the glue jointer feeder at [facility] on September 11. He is wondering if those appointments can be moved up. Review of Systems 10 system review was performed and was negative unless stated otherwise history of present illness. Past Medical/Surgical History Medical Problems: (1) No active medical problems Family History No pertinent family history Social History Smoking Status: Never Smoker Alcohol Use: occasionally Drug Use: none Marital Status: single Housing Status: lives with roommate Occupation Status: [employer] student Current/Historical Medications Scheduled Amoxicillin & Pot Clavulanate (Augmentin 875-125 mg), 875 MG PO BID Physical Exam Vital Signs Date Time Temp Pulse Resp B/P (MAP) Pulse Ox O2 Delivery O2 Flow Rate FiO2 08/27/17 17:38 36.9 97 20 142/62 97 Room Air Physical Exam PHYSICAL EXAM: Vital Signs were reviewed: Reviewed Nurse's notes and agree. Oxygen saturation is 97 % on room air which is normal . GENERAL: 21-year-old male appears in no acute distress. MENTAL STATUS: Alert, oriented, coherent. EARS: Canals clear. TMs good light reflex, no erythema or fluid level noted. NOSE: Nasal mucosa with moderate erythema engorgement. PHARYNX: Minimal erythema. Tonsils are 2+ without exudate. Uvula is midline. Airway is adequate. NECK: Supple, non-tender. No lymphadenopathy noted. LUNGS: Clear to auscultation without wheezes rales or rhonchi. CARDIAC: Regular rate and rhythm without murmur. SKIN: No rashes noted. Medical Decision & Procedures ED Course The patient was evaluated. The patient's EMR medication list were reviewed. The patient did not have a strep test done yesterday but he is already on antibiotics therefore that is not an option at this time. I do not feel that this is infectious in nature. I feel that the steroids that he was placed on today will help him. He did receive a loading dose of 60 mg yesterday when he was in the ER which was adequate treatment at that time. He also is taking Augmentin 875 mg twice a day. I spoke with the patient's relative about the patient's treatment plan and she was in agreement. I also spoke with the case assembler who will call both ENT and the glue jointer feeder tomorrow to see if they can move up his appointments. The patient was happy with treatment plan and was discharged home in stable condition. Medical Decision Differential diagnosis include viral pharyngitis, strep pharyngitis, mononucleosis, allergic rhinitis [place] Drug Monitoring Program Search Results: patient reviewed within database Medication Reconcilliation Current Medication List: was personally reviewed by me Blood Pressure Screening Patient's blood pressure: Normal blood pressure Impression Primary Impression: Recurrent tonsillitis Departure Information Dispostion Home / Self-Care Condition GOOD Referrals [facility] (PCP) Forms HOME CARE DOCUMENTATION FORM, IMPORTANT VISIT INFORMATION, WORK / SCHOOL INSTRUCTIONS Patient Instructions My [facility], Sore Throat - [facility] Additional Instructions Follow sore throat handouts instructions. Continue antibiotics as prescribed. Continue prednisone 20 mg daily. Also recommend taking Zyrtec daily. May also contact [facility] to have them check the filters on the heating system. The case assembler will call you tomorrow with earlier ENT and glue jointer feeder appointments if possible.
[2017-08-27 18:30] VITALS: BP 128/74; PULSE 77; O2SAT 98
[2017-08-28] MEDS ORDERED: PRED20TA PO (21:07)
== END 2017-08-27 18:31 | disposition home or self-care (01) ==
LOC: C.EDB 17:17 → C.EDA 18:31
DX: J03.91 Acute recurrent tonsillitis, unspecified (principal)

== ENCOUNTER 2017-08-28 19:40 | Emergency (ER) | payer OTHER ==
[~2017-08-28] VITALS: Ht 185.4 cm; Wt 81.1 kg
[2017-08-28 19:48] VITALS: TEMP 37.1; Ht 185.4 cm; Wt 81.1 kg
[2017-08-28] MEDS ORDERED: SODIUM CHLORIDE 0.9% 1000ML 1,000 ML IV STA (20:52)
--- NOTE | 2017-08-28 20:58 | EMERGENCY ROOM VISIT NOTE ---
History Report prepared by Dre: Tayla Chavez Under the Supervision of: Dr. Shira Wakefield M.D. First contact with patient: 19:57 Chief Complaint: OTHER COMPLAINT Stated Complaint: HARD TO OPEN MOUTH,NO EATING IN 3 DAYS,WASHERE T-1 History of Present Illness The patient is a 21 year old male who presents to the Emergency Room with complaints of worsening swelling of his tonsils beginning three days ago. The patient was seen in the ED yesterday for the same symptoms yesterday. He states his symptoms have worsened since being seen yesterday. He reports swollen tonsils, difficulty opening his mouth, difficulty swallowing, and an inability to eat or drink a substantial amount of fluids for the past couple days. The patient was put on Augmentin and steroids. The patient has taken 3 doses of his Augmentin. Source of History: patient Onset: three days ago Position: other (tonsils) Quality: other (swelling) Timing: worsening Modifying Factors (Relieving): other (none) Review of Systems See HPI for pertinent positives & negatives. A total of 10 systems reviewed and were otherwise negative. Past Medical & Surgical Medical Problems: (1) No active medical problems Family History No pertinent family history Social History Smoking Status: Never Smoker Alcohol Use: occasionally Drug Use: none Marital Status: single Housing Status: lives with roommate Occupation Status: [employer] student Current/Historical Medications Scheduled Amoxicillin & Pot Clavulanate (Augmentin 875-125 mg), 875 MG PO BID Prednisone (Prednisone), 20 MG PO DAILY Allergies Coded Allergies: No Known Allergies (Unverified , 08/26/17) Physical Exam Vital Signs Date Time Temp Pulse Resp B/P (MAP) Pulse Ox O2 Delivery O2 Flow Rate FiO2 08/28/17 22:04 80 20 124/73 98 Room Air 08/28/17 19:48 37.1 135 19 140/64 98 Room Air Physical Exam Vital signs reviewed. General: Well-appearing male, in no significant distress. HEENT: No scleral icterus, PERRLA, neck supple. Atraumatic. Posterior oropharynx edema along soft palate, left greater than right, tonsillar hypertrophy without significant exudate, positive trismus Cardiovascular: Tachycardic rate and regular rhythm, no extra sounds. Pulmonary: Clear to auscultation bilaterally, normal work of breathing. Abdomen: Soft, nontender, nondistended, positive bowel sounds. Musculoskeletal: Atraumatic, no peripheral edema. Neurologic: Patient awake alert and oriented x 3 Skin: Warm, dry, no rash Medical Decision & Procedures Laboratory Results 08/28/17 21:10 Red Blood Count 5.11, Mean Corpuscular Volume 86.5, Mean Corpuscular Hemoglobin 31.3, Mean Corpuscular Hemoglobin Concent 36.2, Mean Platelet Volume 9.6, Neutrophils (%) (Auto) 63.9, Lymphocytes (%) (Auto) 19.8, Monocytes (%) (Auto) 14.4, Eosinophils (%) (Auto) 1.3, Basophils (%) (Auto) 0.3, Neutrophils # (Auto ) 7.59, Lymphocytes # (Auto) 2.35, Monocytes # (Auto) 1.71, Eosinophils # (Auto ) 0.16, Basophils # (Auto) 0.03 08/28/17 21:10 Test 08/28/17 21:10 White Blood Count 11.87 K/uL (4.8-10.8) Red Blood Count 5.11 M/uL (4.7-6.1) Hemoglobin 16.0 g/dL (14.0-18.0) Hematocrit 44.2 % (42-52) Mean Corpuscular Volume 86.5 fL (80-100) Mean Corpuscular Hemoglobin 31.3 pg (25-34) Mean Corpuscular Hemoglobin Concent 36.2 g/dl (32-36) Platelet Count 198 K/uL (130-400) Mean Platelet Volume 9.6 fL (7.4-10.4) Neutrophils (%) (Auto) 63.9 % Lymphocytes (%) (Auto) 19.8 % Monocytes (%) (Auto) 14.4 % Eosinophils (%) (Auto) 1.3 % Basophils (%) (Auto) 0.3 % Neutrophils # (Auto) 7.59 K/uL (1.4-6.5) Lymphocytes # (Auto) 2.35 K/uL (1.2-3.4) Monocytes # (Auto) 1.71 K/uL (0.11-0.59) Eosinophils # (Auto) 0.16 K/uL (0-0.5) Basophils # (Auto) 0.03 K/uL (0-0.2) RDW Standard Deviation 37.6 fL (36.4-46.3) RDW Coefficient of Variation 11.8 % (11.5-14.5) Immature Granulocyte % (Auto) 0.3 % Immature Granulocyte # (Auto) 0.03 K/uL (0.00-0.02) Anion Gap 8.0 mmol/L (3-11) Est Creatinine Clear Calc Drug Dose 149.6 ml/min Estimated GFR () 142.7 Estimated GFR (Non- 123.1 BUN/Creatinine Ratio 13.7 (10-20) Calcium Level 9.0 mg/dl (8.5-10.1) Laboratory results per my review. Medications Administered Medications (Trade) Dose Ordered Sig/Ricki Route Start Time Stop Time Status Last Admin Dose Admin Sodium Chloride 1,000 ml @ 999 mls/hr Q1H1M STAT IV 08/28/17 20:52 08/28/17 21:52 DC 08/28/17 20:52 999 MLS/HR Dexamethasone Sodium Phosphate (Dexamethasone Inj Pf) 10 mg NOW ONCE IV 08/28/17 21:45 08/28/17 21:46 DC 08/28/17 21:57 10 MG ED Course 2049: Past medical records reviewed. The patient was evaluated in room B5. A complete history and physical examination was performed. 2051: Ordered Sodium Chloride 1000 ml @ 999 mls/hr IV. 2144: Ordered Dexamethasone Sodium Phosphate 10 mg IV. 2213: I updated the patient on his test results and the treatment plan. 2218: Upon reevaluation, the patient appeared to have improvement of his symptoms. I discussed findings with him. He verbalized agreement of the treatment plan. The patient was discharged home. Medical Decision Differential diagnosis: Etiologies such as viral syndrome, tonsillitis, streptococcal pharyngitis, mononucleosis, peritonsillar abscess, retropharyngeal abscess, otitis, pneumonia , influenza, as well as others were entertained. This patient was evaluated and appeared to be in some discomfort. IV access was obtained and laboratory work was drawn. The patient was hydrated with normal saline solution. He was medicated with IV dexamethasone. The patient has had 3 doses of Augmentin. I did have an extensive conversation with the patient's mother. They seem to be frustrated with the one to two-week wait to be evaluated by ENT. In review of the patient's record, he has seen both Dr. Gutierrez and Dr. Anton recently. He was diagnosed with a peritonsillar cellulitis at that time. I suspect the patient is suffering similar etiology. The patient was strongly advised to continue his Augmentin and prednisone as prescribed. He has made an appointment with Dr. Pantoja prior to today's visit for next week. At this time I do not think the patient is in need of emergent surgery. He has been treated several times in the last 2 months with antibiotics. I did have an extensive conversation with the patient's mother who is currently in [place]. She was reassured regarding the findings and the plan of care was discussed. I have encouraged to soft diet, Tylenol as needed for pain. He will continue the steroids and Augmentin. He will follow-up with ENT as scheduled. He will return to the ER for worsening of symptoms or any medical concerns. Medication Reconcilliation Current Medication List: was personally reviewed by me Blood Pressure Screening Patient's blood pressure: Normal blood pressure Impression Primary Impression: Peritonsillar cellulitis Scribe Attestation The scribe's documentation has been prepared under my direction and personally reviewed by me in its entirety. I confirm that the note above accurately reflects all work, treatment, procedures, and medical decision making performed by me. Departure Information Dispostion Home / Self-Care Referrals [facility] (PCP) Forms HOME CARE DOCUMENTATION FORM, IMPORTANT VISIT INFORMATION, WORK / SCHOOL INSTRUCTIONS Patient Instructions My [facility] Additional Instructions Diagnosis: Peritonsillar cellulitis Continue the Augmentin as prescribed. Continue steroids as prescribed. Follow-up with ENT as soon as possible. You may contact Dr Blandon at [facility] or Dr Pantoja for follow up if you are unhappy with your current care. Return to the emergency department for worsening of symptoms or any medical concerns.
[2017-08-28] MEDS ORDERED: PRED20TA PO (21:07)
[2017-08-28 21:30] LABS: BASO % 0.3 %; BASO ABS # 0.03 K/uL (0-0.2); EOS % 1.3 %; EOS ABS # 0.16 K/uL (0-0.5); HEMATOCRIT 44.2 % (42-52); IG# 0.03 K/uL (0.00-0.02); LYMPH % 19.8 %; LYMPH ABS # 2.35 K/uL (1.2-3.4); MEAN CELL VOLUME 86.5 fL (80-100); MEAN CORPUSCULAR HEMOGLOBIN 31.3 pg (25-34); MEAN CORPUSCULAR HGB CONC 36.2 g/dl (32-36); MEAN PLATELET VOLUME 9.6 fL (7.4-10.4); MONO % 14.4 %; MONO ABS # 1.71 K/uL (0.11-0.59); NEUT % 63.9 %; NEUT ABS # 7.59 K/uL (1.4-6.5); PLATELET COUNT 198 K/uL (130-400); RED CELL DISTRIBUTION WIDTH CV 11.8 % (11.5-14.5); RED CELL DISTRIBUTION WIDTH SD 37.6 fL (36.4-46.3); WHITE BLOOD COUNT 11.87 K/uL (4.8-10.8)
[2017-08-28] MEDS ORDERED: DEXAMETHASONE **PF** INJ 10 MG/ML VIAL IV ONE (21:45)
[2017-08-28 21:46] LABS: CREATININE 0.89 mg/dl (0.60-1.40); POTASSIUM 3.3 mmol/L (3.5-5.1)
[2017-08-28 22:04] VITALS: BP 124/73; PULSE 80; O2SAT 98
== END 2017-08-28 22:45 | disposition home or self-care (01) ==
LOC: C.EDB 19:44
DX: J36 Peritonsillar abscess (principal); R00.0 Tachycardia, unspecified

== ENCOUNTER 2017-09-09 21:57 | Emergency (ER) | payer OTHER ==
[~2017-09-09] VITALS: Ht 185.4 cm; Wt 81.8 kg
[~2017-09-09 21:57] MED LIST changes: -AMOX875T PO; +PRED20TA PO
[2017-09-09 22:05] VITALS: TEMP 37.2; Ht 185.4 cm; Wt 81.8 kg
[2017-09-09] MEDS ORDERED: KETOROLAC TROMETHAMINE 30 MG/ML VIAL IV STA (22:17)
[2017-09-09] MEDS ORDERED: METHYLPREDNISOLONE 125 MG VIAL IV STA (22:17)
[2017-09-09 22:47] LABS: BASO % 0.2 %; BASO ABS # 0.03 K/uL (0-0.2); EOS % 0.8 %; EOS ABS # 0.16 K/uL (0-0.5); HEMATOCRIT 43.3 % (42-52); HEMOGLOBIN 15.5 g/dL (14.0-18.0); IG# 0.06 K/uL (0.00-0.02); LYMPH % 7.2 %; LYMPH ABS # 1.43 K/uL (1.2-3.4); MEAN CELL VOLUME 87.3 fL (80-100); MEAN CORPUSCULAR HEMOGLOBIN 31.3 pg (25-34); MEAN CORPUSCULAR HGB CONC 35.8 g/dl (32-36); MEAN PLATELET VOLUME 9.3 fL (7.4-10.4); MONO % 7.1 %; MONO ABS # 1.41 K/uL (0.11-0.59); NEUT % 84.4 %; NEUT ABS # 16.82 K/uL (1.4-6.5); PLATELET COUNT 208 K/uL (130-400); RED CELL DISTRIBUTION WIDTH SD 38.3 fL (36.4-46.3); WHITE BLOOD COUNT 19.91 K/uL (4.8-10.8)
[2017-09-09] MEDS ORDERED: IBUP-1450 PO (22:47)
[2017-09-09] MEDS ORDERED: PRED50TA PO (22:57)
[2017-09-09] MEDS ORDERED: AMOX875T PO (22:57)
[2017-09-09] MEDS ORDERED: AMOXICILLIN/CLAVULANATE TAB 875 MG TAB PO ONE (23:00)
[2017-09-09 23:06] LABS: ALBUMIN 4.1 gm/dl (3.4-5.0); ALT/SGPT 26 U/L (12-78); BLOOD UREA NITROGEN 14 mg/dl (7-18); CALCIUM 8.5 mg/dl (8.5-10.1); CARBON DIOXIDE 27 mmol/L (21-32); CREATININE 0.75 mg/dl (0.60-1.40); GLUCOSE 99 mg/dl (70-99); LIPASE 165 U/L (73-393); POTASSIUM 3.4 mmol/L (3.5-5.1); SODIUM 139 mmol/L (136-145)
[2017-09-09 23:09] LABS: ALKALINE PHOSPHATASE 83 U/L (45-117); AST/SGOT 17 U/L (15-37); TOTAL PROTEIN 7.6 gm/dl (6.4-8.2)
[2017-09-09 23:29] VITALS: BP 116/90; PULSE 106; O2SAT 99
[2017-09-09 23:31] LABS: INFLUENZA B ANTIGEN Neg for Influ B (NEG)
[2017-09-10] MEDS ORDERED: AMOXICILLIN/CLAVULANATE TAB 875 MG TAB PO ONE
--- NOTE | 2017-09-10 00:51 | EMERGENCY ROOM VISIT NOTE ---
History Report prepared by Dre: Cassy Field Under the Supervision of: Mauri HannahO. First contact with patient: 22:07 Chief Complaint: THROAT PAIN/INJURY Stated Complaint: SWOLLEN TONSILS AND THROAT, CHILLS, MUSCLE WEAKNES History of Present Illness The patient is a 22 year old male who presents to the Emergency Room with complaints of a persistent sore throat that began this morning. The patient states that he has muscle aches, chills, and some abdominal pain. Pt denies ear pain, headache, cough, change in vision, fevers, chest pain, shortness of breath , nausea, vomiting, diarrhea, pain with urination, and melena. The patient was seen in the Emergency Department in June for peritonsillar abscess and has been back and forth for tonsillitis, noting he plans on having his tonsils removed soon. Source of History: patient Onset: this morning Position: throat Quality: other (sore throat) Timing: other (persistent) Associated Symptoms: + chills, + cough, + abdominal pain (some), No fevers, No chest pain, No SOB, No nausea, No vomiting, No melena, No diarrhea, No urinary symptoms Review of Systems See HPI for pertinent positives & negatives. A total of 10 systems reviewed and were otherwise negative. Past Medical & Surgical Medical Problems: (1) No active medical problems Family History No pertinent family history Social History Smoking Status: Never Smoker Alcohol Use: occasionally Drug Use: none Marital Status: single Housing Status: lives with roommate Occupation Status: [employer] student Current/Historical Medications Scheduled Amoxicillin & Pot Clavulanate (Augmentin 875-125 mg), 875 MG PO BID Prednisone (Prednisone), 50 MG PO DAILY Scheduled PRN Ibuprofen (Motrin), 600 MG PO Q6H PRN for Pain Allergies Coded Allergies: No Known Allergies (Unverified , 08/26/17) Physical Exam Vital Signs Date Time Temp Pulse Resp B/P (MAP) Pulse Ox O2 Delivery O2 Flow Rate FiO2 09/09/17 23:29 106 16 116/90 99 Room Air 09/09/17 22:05 37.2 100 16 143/98 97 Room Air Physical Exam GENERAL: Sitting up in bed, talking in full sentences, alert, well appearing, well nourished, no distress, non-toxic EYE EXAM: normal conjunctiva. OROPHARYNX: no exudate, no erythema, lips, buccal mucosa, and tongue normal and mucous membranes are moist NECK: supple, no nuchal rigidity, no adenopathy, non-tender LUNGS: Clear to auscultation. Normal chest wall mechanics HEART: no murmurs, S1 normal and S2 normal ABDOMEN: abdomen soft, non-tender, normo-active bowel sounds, no masses, no rebound or guarding. SKIN: no rashes and no bruising UPPER EXTREMITIES: upper extremities are grossly normal. LOWER EXTREMITIES: No pitting edema. NEURO EXAM: Normal sensorium, cranial nerves II-XII grossly intact, normal speech, no gross weakness of arms, no gross weakness of legs. Medical Decision & Procedures Laboratory Results 09/09/17 22:34 Red Blood Count 4.96, Mean Corpuscular Volume 87.3, Mean Corpuscular Hemoglobin 31.3, Mean Corpuscular Hemoglobin Concent 35.8, Mean Platelet Volume 9.3, Neutrophils (%) (Auto) 84.4, Lymphocytes (%) (Auto) 7.2, Monocytes (%) (Auto) 7.1, Eosinophils (%) (Auto) 0.8, Basophils (%) (Auto) 0.2, Neutrophils # (Auto) 16.82, Lymphocytes # (Auto) 1.43, Monocytes # (Auto) 1.41, Eosinophils # (Auto) 0.16, Basophils # (Auto) 0.03 09/09/17 22:34 Test 09/09/17 22:34 09/09/17 22:55 White Blood Count 19.91 K/uL (4.8-10.8) Red Blood Count 4.96 M/uL (4.7-6.1) Hemoglobin 15.5 g/dL (14.0-18.0) Hematocrit 43.3 % (42-52) Mean Corpuscular Volume 87.3 fL (80-100) Mean Corpuscular Hemoglobin 31.3 pg (25-34) Mean Corpuscular Hemoglobin Concent 35.8 g/dl (32-36) Platelet Count 208 K/uL (130-400) Mean Platelet Volume 9.3 fL (7.4-10.4) Neutrophils (%) (Auto) 84.4 % Lymphocytes (%) (Auto) 7.2 % Monocytes (%) (Auto) 7.1 % Eosinophils (%) (Auto) 0.8 % Basophils (%) (Auto) 0.2 % Neutrophils # (Auto) 16.82 K/uL (1.4-6.5) Lymphocytes # (Auto) 1.43 K/uL (1.2-3.4) Monocytes # (Auto) 1.41 K/uL (0.11-0.59) Eosinophils # (Auto) 0.16 K/uL (0-0.5) Basophils # (Auto) 0.03 K/uL (0-0.2) RDW Standard Deviation 38.3 fL (36.4-46.3) RDW Coefficient of Variation 12.0 % (11.5-14.5) Immature Granulocyte % (Auto) 0.3 % Immature Granulocyte # (Auto) 0.06 K/uL (0.00-0.02) Anion Gap 8.0 mmol/L (3-11) Est Creatinine Clear Calc Drug Dose 176.0 ml/min Estimated GFR () > 150.0 Estimated GFR (Non- 131.1 BUN/Creatinine Ratio 18.7 (10-20) Calcium Level 8.5 mg/dl (8.5-10.1) Total Bilirubin 0.8 mg/dl (0.2-1) Direct Bilirubin 0.2 mg/dl (0-0.2) Aspartate Amino Transf (AST/SGOT) 17 U/L (15-37) Alanine Aminotransferase (ALT/SGPT) 26 U/L (12-78) Alkaline Phosphatase 83 U/L (45-117) Total Protein 7.6 gm/dl (6.4-8.2) Albumin 4.1 gm/dl (3.4-5.0) Lipase 165 U/L (73-393) Influenza Type A Antigen Neg for Influ A (NEG) Influenza Type B Antigen Neg for Influ B (NEG) Date/Time Source Procedure Growth Status 09/09/17 22:34 Throat Group A Streptococcus Screen - Final SPECIMEN POSITIVE FOR GROUP A BETA ST... Complete 09/09/17 22:34 Throat Group A Streptococcus Screen (RONNY) - Final Complete Laboratory results per my review. Medications Administered Medications (Trade) Dose Ordered Sig/Ricki Route Start Time Stop Time Status Last Admin Dose Admin Methylprednisolone Sodium Succinate (Solu-Medrol IV) 125 mg NOW STAT IV 09/09/17 22:17 09/09/17 22:18 DC 09/09/17 22:52 125 MG Ketorolac Tromethamine (Toradol Inj) 30 mg NOW STAT IV 09/09/17 22:17 09/09/17 22:18 DC 09/09/17 22:54 30 MG Amoxicillin/ Clavulanate Potassium (Augmentin Tab) 875 mg ONE ONCE PO 09/09/17 23:00 09/09/17 23:01 DC 09/09/17 23:26 875 MG ED Course ED COURSE: Vital signs were reviewed and showed normal vitals. The patients medical record was reviewed The above diagnostic studies were performed and reviewed. ED treatments and interventions as stated above. 2214: The patient was evaluated in room C12. A complete history and physical examination was performed. 2217: Ordered Toradol Inj 30mg IV and Solu-Medrol IV 125mg IV. 2300: Ordered Augmentin Tab 875mg PO. 2346: Upon reevaluation, the patient is feeling better. I discussed the findings and the treatment plan with the patient. He verbalizes agreement and understanding. The patient was discharged home. Medical Decision Differential diagnosis includes etiologies such as viral syndrome, tonsillitis, streptococcal pharyngitis, mononucleosis, peritonsillar abscess, retropharyngeal abscess, otitis, pneumonia, influenza, as well as others were entertained. Patient is a 22-year-old male who presents to ER for a sore throat. He notes it started within the past 24-48 hours. Has been gradually worsening. He has a past medical history of peritonsillar abscess and tonsillar cellulitis. His follow-up with all 3 ENT physicians. Recently just ended a course of Augmentin. He normally takes Augmentin and steroids. Today he has a sore throat and mild abdominal discomfort. Abdominal exam is completely benign. Labs were remarkable for leukocytosis of 19,000. BMP all LFTs, bilirubin lipase is unremarkable. Influenza was negative. Strep was positive. Patient was given Augmentin per his request and discharged with steroids. He was given IV Toradol and fluids. He will follow up with ENT as an outpatient. Discussed with Pt concerning signs and symptoms to watch out for. Pt was instructed to follow up with their PCP and discussed with the patient their option to return to the ED at anytime for persistent or worsening symptoms. The appropriate anticipatory guidance and out-patient management, including indications for return to the emergency department, were explained at length to the patient and understood. Medication Reconcilliation Current Medication List: was personally reviewed by me Blood Pressure Screening Patient's blood pressure: Normal blood pressure Impression Primary Impression: Strep pharyngitis Scribe Attestation The scribe's documentation has been prepared under my direction and personally reviewed by me in its entirety. I confirm that the note above accurately reflects all work, treatment, procedures, and medical decision making performed by me. Departure Information Dispostion Home / Self-Care Prescriptions Prednisone (PREDNISONE) 50 Mg Tab 50 MG PO DAILY for 4 Days, TAB Prov: Michael Moore, DO 09/09/17 Amoxicillin & Pot Clavulanate (Augmentin 875-125 mg) 1 Tab Tab 875 MG PO BID for 10 Days, TAB Prov: Michael Moore, DO 09/09/17 Referrals [facility] (PCP) Forms HOME CARE DOCUMENTATION FORM, IMPORTANT VISIT INFORMATION, WORK / SCHOOL INSTRUCTIONS Patient Instructions My [facility] Additional Instructions Please follow up with your primary care doctor or if you are a student, [facility] services with in the next 24 hours. Any worsening of your symptoms, please return to the ED immediately. This includes any fevers greater than 100.4, worsening pain, chest pain, shortness breath, persistent nausea, vomiting, unable to eat or drink, or any other concerning signs or symptoms from your standpoint. Please take antibiotics as prescribed. Please take steroids as prescribed. Please follow up with ENT as soon as possible.
== END 2017-09-09 23:58 | disposition home or self-care (01) ==
LOC: C.EDB 21:58 → C.EDC 23:58
DX: J02.0 Streptococcal pharyngitis (principal)

== ENCOUNTER 2017-10-24 05:12 | Emergency (ER) | payer OTHER ==
[~2017-10-24] VITALS: Ht 185.4 cm; Wt 81.7 kg
[~2017-10-24 05:12] MED LIST changes: +IBUP-1450 PO; -PRED20TA PO
[2017-10-24 05:17] VITALS: TEMP 36.7; Ht 185.4 cm; Wt 81.7 kg
[2017-10-24 06:39] VITALS: BP 138/58; PULSE 76; O2SAT 97
--- NOTE | 2017-10-24 06:45 | EMERGENCY ROOM VISIT NOTE ---
History First contact with patient: 05:21 Chief Complaint: THROAT PAIN/INJURY Stated Complaint: BLOOD IN THROAT S/P TONSILECTOMY History of Present Illness The patient is a 22 year old male who presents to the Emergency Room with complaints of post tonsillectomy bleeding for the past 2 hours. Patient states he was up playing on his iPhone and felt something drip in the back of his throat and it felt weird and he coughed it up and he coughed up to things this bloody sputum. He states it was bright red. He then gargle ice water with salt and came here. He states no other episodes of coughing up blood. He states he can feel like the bleeding was on the left side. Last Sunday Dr. White did his tonsillectomy. No complications. He is not on antibiotics. No alcohol tobacco or drug use. He has been eating soft foods. He does not feel sick. Patient denies chest pain, dyspnea, fever, chills, cough, congestion. Review of Systems An 10 system review of systems was completed with positives and pertinent negatives listed in the HPI. Past Medical/Surgical History Medical Problems: (1) No active medical problems Family History No pertinent family history Social History Smoking Status: Never Smoker Alcohol Use: occasionally Drug Use: none Marital Status: single Housing Status: lives with roommate Occupation Status: [employer] student Current/Historical Medications No Active Prescriptions or Reported Meds Physical Exam Vital Signs Date Time Temp Pulse Resp B/P (MAP) Pulse Ox O2 Delivery O2 Flow Rate FiO2 10/24/17 06:39 76 16 138/58 97 Room Air 10/24/17 05:17 36.7 93 18 137/69 97 Room Air Physical Exam VITALS: Vitals are noted on the nurse's note and reviewed by myself. Vital signs stable. GENERAL: Pleasant male speaking in full sentences, in no acute distress, nondiaphoretic, well-developed well-nourished. SKIN: The skin was without rashes, erythema, edema, or bruising. There is no tenting of the skin. Capillary reflex less than 2 seconds. HEAD: Normocephalic atraumatic. EARS: External auditory canals clear, tympanic membranes pearly gonzalez without erythema or effusion bilaterally. EYES: Pupils equal round and reactive to light and accommodation. Conjunctivae without injection, sclerae without icterus. Extraocular movements intact. NOSE: Patent, turbinates without inflammation or discharge. No sinus tenderness. MOUTH: Mucous membranes moist. Pharynx with healing white eschars in the back of the throat over the tonsillar pillar areas with left tonsillar pillar area eschar partially gone with no active bleeding but is erythematous. Uvula midline. Airway patent. Tongue does not deviate. NECK: Supple without nuchal rigidity. No lymphadenopathy. No thyromegaly. Cervical spine is nontender. No JVD. HEART: Regular rate and rhythm without murmurs gallops or rubs. LUNGS: Clear to auscultation bilaterally without wheezes, rales or rhonchi. No retractions or accessory muscle use. ABDOMEN: Positive bowel sounds x 4. Normal tympanic percussion. Soft, nontender, without masses or organomegaly. Mccracken sign negative. No guarding or rebound tenderness. No CVA tenderness MUSCULOSKELETAL: No muscle atrophy, erythema, or edema noted. NEURO: Patient was alert and oriented to person place and time. Normal sensation to light and sharp touch. No focal neurological deficits. Medical Decision & Procedures ED Course Prior records reviewed and summarized as above. Triage Nursing notes reviewed. Additional history obtained from family The patient's history was concerning for bleeding after recent tonsillectomy Differential diagnosis: Etiologies such as post tonsillectomy hemorrhage, cellulitis, abscess, coagulopathy, as well as others were entertained.. Physical examination: The physical examination was consistent with post tonsillectomy bleeding that is resolving ER treatment provided: Ice water with hydrogen peroxide gargles On reassessment the patient felt better. Diagnostics interpreted by me: Deferred Consultation: A consultation was placed with the ENT, Dr. White who did the surgery. The case was discussed and diagnostics were reviewed. He recommends since the bleeding has stopped to do a liquid diet the next 2 days and then continue treatment plan originally outlined. He states patient can follow-up or call today if needed. This appears to be post tonsillectomy bleed that is now resolved. Patient was observed with no rebleeding. He gargled with water and hydrogen peroxide. His airway was patent. Patient is advised to call his ENT doctor this morning to make a follow-up appointment as needed. He is advised to do a liquid diet the next 2 days and then resume original outline treatment plan. He is advised to return to the ER mediate for bleeding, pain, fevers, worsening signs or symptoms or as needed. Patient was neurovascularly and neurologically intact. No signs of airway compromise. No signs of infection. By the evaluation outlined above emergent etiologies such as abscess, coagulopathy, as well as others were deemed relatively unlikely. The pt informed about the findings as listed above. All questions were answered and pleased with the treatment. Return instructions were outlined and the patient was discharged in stable condition. Referral: The patient was referred back to ENT for follow-up in 2 to 3 days for a recheck of the current condition. Case reviewed with my Attending. The chart was completed utilizing [employer] voice recognition software. Grammatical errors, random word insertions, pronoun errors, and incomplete sentences are an occassional consequence of this system due to software limitations, ambient noise, and hardware issues. Any formal questions or concerns about the content, text, or information contained within the body of this dictation should be directly addressed to the physician ex assistant/program director for clarification. Medical Decision As above Medication Reconcilliation Current Medication List: was personally reviewed by me Blood Pressure Screening Patient's blood pressure: Normal blood pressure Impression Primary Impression: Post-tonsillectomy hemorrhage Departure Information Dispostion Home / Self-Care Condition GOOD Prescriptions No Active Prescriptions or Reported Meds Referrals No Doctor, Assigned (PCP) Patient Instructions My [facility] Additional Instructions Liquid diet for the next 2 days then Continue soft diet and treatment plan as outlined by your ENT doctor. Call your ENT doctor this morning and let them know that you were in the ER with post tonsillectomy bleeding. Your surgeon will be in his office after 11 AM. Rest and drink plenty of fluids as tolerated. Continue current medications. Return to the ER immediately for worsening or persistent bleeding in your throat , abdominal pain, vomiting, fevers, chest pains, difficulty breathing, worsening of your condition, or as needed. Follow up with your ENT in 2-3 days for a recheck of your current condition. Call today for follow-up appointment as needed.
[2017-10-28] MEDS ORDERED: HYDR1SOL10 PO (18:37)
== END 2017-10-24 06:50 | disposition home or self-care (01) ==
LOC: C.EDB 05:13 → C.EDA 06:50
DX: K91.840 Postprocedural hemorrhage of a digestive system organ or structure following a digestive system procedure (principal)

== ENCOUNTER 2017-10-27 16:06 | Observation (INO) | payer OTHER ==
[~2017-10-27] VITALS: Ht 185.4 cm; Wt 79.6 kg
[2017-10-27] MEDS ORDERED: SILVER NITR/POTASSIUM NITRATE APPLICATOR ONE (16:57)
[2017-10-27 17:06] LABS: BASO % 0.2 %; BASO ABS # 0.02 K/uL (0-0.2); EOS % 0.7 %; EOS ABS # 0.06 K/uL (0-0.5); HEMATOCRIT 43.7 % (42-52); HEMOGLOBIN 15.7 g/dL (14.0-18.0); IG# 0.11 K/uL (0.00-0.02); LYMPH ABS # 1.82 K/uL (1.2-3.4); MEAN CELL VOLUME 85.7 fL (80-100); MEAN CORPUSCULAR HEMOGLOBIN 30.8 pg (25-34); MEAN CORPUSCULAR HGB CONC 35.9 g/dl (32-36); MONO % 6.6 %; NEUT % 71.3 %; NEUT ABS # 6.49 K/uL (1.4-6.5); PLATELET COUNT 239 K/uL (130-400); RED CELL DISTRIBUTION WIDTH CV 11.9 % (11.5-14.5); RED CELL DISTRIBUTION WIDTH SD 37.4 fL (36.4-46.3)
[2017-10-27] MEDS ORDERED: PRLUDL5 PO (17:12)
[2017-10-27] MEDS ORDERED: HYDR-5688 PO (17:12)
[2017-10-27 17:58] LABS: PTT PATIENT 25.9 SECONDS (21.0-31.0)
[2017-10-27] MEDS ORDERED: SILVER NITR/POTASSIUM NITRATE APPLICATOR EXT ONE (19:09)
[2017-10-27] MEDS ORDERED: BENZOCAINE/TETRACAIN/BUTAM CAN 200 APPLN/20 GM CAN EXT ONE (19:09)
--- NOTE | 2017-10-27 19:26 | ENT CONSULTATION ---
DATE OF CONSULTATION: 10/27/2017 PERSON REQUESTING CONSULTATION: Dr. Moore. INDICATION: Post-tonsillectomy hemorrhage. HISTORY OF PRESENT ILLNESS: This is a 22-year-old [employer] student who is 10 days after tonsillectomy. On postoperative day #7, he had a post-tonsillectomy bleed and was seen in the Emergency Department at [facility]. This bleeding stopped very quickly after starting, and he was able to be sent home with standard instructions. Today, he was doing some lifting of some items that were left behind by a former roommate, and he started to bleed again. His mother brought him back to the Emergency Department. As far as past medical history, review of systems, they are all well documented in Dr. Moore's note. PHYSICAL EXAM I interviewed the patient in room A4 in the Emergency Department. He was awake, alert, and cooperative. His mother was also present. I also had the assistance of Diego, an RN. The patient did not appear to be in any apparent distress. He was normotensive. He was not tachycardic. Using a headlight and a tongue blade and after gargling, I was able to see that he had an arterial bleeder in the superior pole of his left tonsillar fossa. This was cauterized with several silver nitrate sticks held in the back of his throat for about 30 seconds. After gargling many times, it was clear that all bleeding had stopped. I removed all eschar and clot to make sure I got exactly where the bleeding was coming from. Labs were checked and his hemoglobin was 15.7. His INR was 1.0. ASSESSMENT AND PLAN: This is now the second post-tonsillectomy bleed for this 22-year-old student. I explained to the patient and his mother that being that he is hemodynamically stable and still has almost all of his blood still in his body that it is okay for him to go home. However, I explained that he was under no circumstances allowed to do any work of any type. He can get out of bed to walk around a little bit and go to the bathroom. I also explained that I just wanted a liquid diet until I see him on 10/29/2017 at 8:45 a.m. in my office. I told him that he can drink apple juice and water today and tomorrow he can start Ensure. I do not want pureed food or any solid food of any type. Just liquid diet until I see him. They expressed understanding of my strong advice. SIVAKUMAR
[2017-10-27] MEDS ORDERED: FLUMAZENIL 0.1 MG/1 ML 10 ML VIAL IV PRN (20:00)
[2017-10-27] MEDS ORDERED: HYDROmorphone INJ 2 MG/ML SYR/VIAL IV PRN (20:00)
[2017-10-27] MEDS ORDERED: ONDANSETRON INJ 2 MG/ML 2 ML VIAL IV PRN ×2 (20:00→21:30)
[2017-10-27] MEDS ORDERED: LABETALOL HCL IV 5 MG/ML 20ML IV PRN (20:00)
[2017-10-27] MEDS ORDERED: EpHEDrine SULFATE INJ 50 MG/ML AMP IV PRN (20:00)
[2017-10-27] MEDS ORDERED: MEPERIDINE HCL 25 MG/ML CARP IV PRN (20:00)
[2017-10-27] MEDS ORDERED: PHENYLEPHRINE 100MCG/ML 5ML SYR IV PRN (20:00)
[2017-10-27] MEDS ORDERED: NALOXONE HCL 0.4 MG/1 ML VIAL/CARP IV PRN (20:00)
[2017-10-27] MEDS ORDERED: ATROPINE SULFATE 0.1 MG/ML 5ML SYR IV PRN (20:00)
[2017-10-27] MEDS ORDERED: GELATIN SPONGE SZ 100 ONE (20:03)
[2017-10-27] MEDS ORDERED: GELATIN SPONGE 12-7MM ONE (20:04)
[2017-10-27] MEDS ORDERED: MIDAZOLAM HCL 1 MG/ML 2ML VIAL ONE (20:06)
[2017-10-27] MEDS ORDERED: FENTANYL CITRATE INJ 50 MCG/1 ML 2 ML VIAL ONE ×3 (20:09→21:50)
[2017-10-27] MEDS ORDERED: CEFAZOLIN SOD 1 GM VIAL ONE (20:17)
[2017-10-27] MEDS ORDERED: SUCCINYLCHOLINE CHLORIDE 20 MG/ML 10 ML VIAL IV ONE (20:26)
[2017-10-27] MEDS ORDERED: PROPOFOL IV EMULSION 10 MG/ML 20 ML VIAL IV ONE (20:26)
[2017-10-27] MEDS ORDERED: OXYMETAZOLINE HCL 0.05% NA SPR 15 ML BTL ONE (20:26)
[2017-10-27] MEDS ORDERED: LIDOCAINE HCL 2% 2 ML VIAL (20MG/ML) ONE (20:27)
[2017-10-27] MEDS ORDERED: LIDOCAINE 4% INH SOLN 4 ML BTL ONE (20:27)
[2017-10-27] MEDS ORDERED: ESMOLOL HCL 10 MG/ML 10 ML VIAL ONE (20:27)
[2017-10-27] MEDS ORDERED: DEXAMETHASONE SOD INJ 4 MG/ML VIAL ONE (20:27)
[2017-10-27] MEDS ORDERED: ONDANSETRON INJ 2 MG/ML 2 ML VIAL ONE (20:27)
--- NOTE | 2017-10-27 21:05 | [facility] Post Operative Brief Note ---
Immediate Operative Summary Operative Date Oct 27, 2017. Pre-Operative Diagnosis Post Tonsillectomy Hemorrhage Post-Operative Diagnosis Post Tonsillectomy Hemorrhage, Generalized oozing of Left Tonsilar Fossa Procedure(s) Performed Control of Post Tonsillectomy Hemorrhage Surgeon Dr. Anton Wine Cellar Stock Clerk Surgeon(s) NONE Estimated Blood Loss 50ml Findings Consistent with Post-Op Diagnosis Specimens None per surgeon Drains None Anesthesia Type General Complication(s) none Disposition Accompanied Pt To Recover: no Disposition: Surgical ICU
--- NOTE | 2017-10-27 21:24 | [facility] Operative Report ---
Operative Report Operative Date Oct 27, 2017. Pre-Operative Diagnosis Post Tonsillectomy Hemorrhage Post-Operative Diagnosis Post Tonsillectomy Hemorrhage, Procedure(s) Performed Control of Post Tonsillectomy Hemorrhage Surgeon Dr. Anton Embedded Hardware Engineer Surgeon(s) NONE Estimated Blood Loss 50ml Findings Generalized oozing of Left Tonsilar Fossa Specimens None per surgeon Drains None Anesthesia Type General Complication(s) none Disposition no Surgical ICU Indications 22 y,o. man with second episode of post tonsillectomy hemorrhage (1st on POD #7 , 10/24/17). Given need for definitive control of bleeding, he was taken back to the OR. Informed consent was provided which included the indications, risks, benefits, and alternatives to surgery. Description of Procedure Following uneventful rapid sequence intubation, the table was turned 90 degrees fromn the anesthesiologist. Lam mouth gag was introduced, and there was generalized oozing from the entire left tonsillar fossa granulation tissue. This was stopped with suction electrocautery. Then, the tonsillar fossa was packed with Surgicel and the anterior and posterior tonsillar pillars were oversewn with interrupted and running 3-0 Vicryl suture. Lam mouth gag was relaxed and there was no further oozing. Stomach was aspirated with a #18 Slovak nasogastric tube. He was allowed to wake up on his own and transported to the ICU to recover before being transferred to the floor. I attest to the content of the Intraoperative Record and any orders documented therein. Any exceptions are noted below.
[2017-10-27] MEDS ORDERED: OXYCODONE HCL IR 5 MG TAB (IMMEDIATE RELEASE) PO PRN (21:30)
--- NOTE | 2017-10-27 21:37 | Anesthesiology Progress Note ---
Anesthesia Post Op Note Date & Time Oct 27, 2017 at 21:37 Vital Signs Pain Intensity: 0 Vital Signs Past 12 Hours Date Time Temp Pulse Resp B/P (MAP) Pulse Ox O2 Delivery O2 Flow Rate FiO2 10/27/17 21:25 93 16 153/87 100 Oxymask 3 10/27/17 21:15 99 16 149/84 99 Oxymask 5 10/27/17 21:09 36.4 98 16 153/73 100 Oxymask 5 10/27/17 19:31 94 138/60 97 Room Air 10/27/17 17:40 103 167/69 97 Room Air 10/27/17 16:09 36.3 97 20 138/82 98 Room Air Notes Mental Status: alert / awake / arousable, participated in evaluation Pt Amnestic to Procedure: Yes Nausea / Vomiting: adequately controlled Pain: adequately controlled Airway Patency, RR, SpO2: stable & adequate BP & HR: stable & adequate Hydration State: stable & adequate Anesthetic Complications: no major complications apparent
[2017-10-27] MEDS: FENTANYL CITRATE INJ 50 MCG/1 ML 2 ML VIAL IV PRN ×2 (21:50→21:55)
--- NOTE | 2017-10-27 21:53 | EMERGENCY ROOM VISIT NOTE ---
History Report prepared by Dre: Latonya Hawkins Under the Supervision of: Dr. Michael Moore D.O. First contact with patient: 16:11 Chief Complaint: BLEEDING Stated Complaint: BLEED FROM THROAT History of Present Illness The patient is a 22 year old male who presents to the Emergency Room with complaints of intermittent bleeding from his throat starting 1 hour ago. The patient had a tonsillectomy 10 days ago. He was seen in the ED 3 days ago with bleeding from his throat. He started having some bleeding again 1 hour ago. It stopped and then restarted 20 minutes ago. He was not eating when the bleeding started. It is continuing to bleed. He has a headache. He denies any chest pain , SOB, nausea, vomiting, or diarrhea. He has no pain at this time. Source of History: patient Onset: 1 hour ago Position: throat Quality: other (bleeding) Timing: intermittent Associated Symptoms: + headache, No chest pain, No SOB, No nausea, No vomiting, No diarrhea Review of Systems See HPI for pertinent positives & negatives. A total of 10 systems reviewed and were otherwise negative. Past Medical & Surgical Medical Problems: (1) Bleeding (2) No active medical problems Surgical Problems: (1) Post-operative state (2) Postoperative state Family History No pertinent family history Social History Smoking Status: Never Smoker Alcohol Use: occasionally Drug Use: none Marital Status: single Housing Status: lives with roommate Occupation Status: [employer] student Current/Historical Medications Scheduled Prednisolone (Prelone 15MG/5ML), 1 DOSE PO DAILY Scheduled PRN Hydrocodone/Acetaminophen 5MG/325MG ([place] 5MG/325MG), 1 TAB PO Q6H PRN for Pain Allergies Coded Allergies: No Known Allergies (Unverified , 10/24/17) Physical Exam Vital Signs Date Time Temp Pulse Resp B/P (MAP) Pulse Ox O2 Delivery O2 Flow Rate FiO2 10/27/17 21:35 88 16 150/74 100 Oxymask 3 10/27/17 21:25 93 16 153/87 100 Oxymask 3 10/27/17 21:15 99 16 149/84 99 Oxymask 5 10/27/17 21:09 36.4 98 16 153/73 100 Oxymask 5 10/27/17 19:31 94 138/60 97 Room Air 10/27/17 17:40 103 167/69 97 Room Air 10/27/17 16:09 36.3 97 20 138/82 98 Room Air Physical Exam GENERAL: Sitting up in bed, talking in full sentences, no acute distress, nontoxic EYE EXAM: normal conjunctiva. OROPHARYNX: Scab in the right posterior tonsillar fold without venous oozing. Left posterior tonsillar fold with mild venous oozing. NECK: supple, no nuchal rigidity, no adenopathy, non-tender LUNGS: Clear to auscultation. Normal chest wall mechanics HEART: no murmurs, S1 normal and S2 normal ABDOMEN: abdomen soft, non-tender, normo-active bowel sounds, no masses, no rebound or guarding. UPPER EXTREMITIES: upper extremities are grossly normal. LOWER EXTREMITIES: No pitting edema. NEURO EXAM: Normal sensorium. Medical Decision & Procedures Laboratory Results 10/27/17 16:50 Red Blood Count 5.10, Mean Corpuscular Volume 85.7, Mean Corpuscular Hemoglobin 30.8, Mean Corpuscular Hemoglobin Concent 35.9, Mean Platelet Volume 9.0, Neutrophils (%) (Auto) 71.3, Lymphocytes (%) (Auto) 20.0, Monocytes (%) (Auto) 6.6, Eosinophils (%) (Auto) 0.7, Basophils (%) (Auto) 0.2, Neutrophils # (Auto) 6.49, Lymphocytes # (Auto) 1.82, Monocytes # (Auto) 0.60, Eosinophils # (Auto) 0.06, Basophils # (Auto) 0.02 Test 10/27/17 16:50 White Blood Count 9.10 K/uL (4.8-10.8) Red Blood Count 5.10 M/uL (4.7-6.1) Hemoglobin 15.7 g/dL (14.0-18.0) Hematocrit 43.7 % (42-52) Mean Corpuscular Volume 85.7 fL (80-100) Mean Corpuscular Hemoglobin 30.8 pg (25-34) Mean Corpuscular Hemoglobin Concent 35.9 g/dl (32-36) Platelet Count 239 K/uL (130-400) Mean Platelet Volume 9.0 fL (7.4-10.4) Neutrophils (%) (Auto) 71.3 % Lymphocytes (%) (Auto) 20.0 % Monocytes (%) (Auto) 6.6 % Eosinophils (%) (Auto) 0.7 % Basophils (%) (Auto) 0.2 % Neutrophils # (Auto) 6.49 K/uL (1.4-6.5) Lymphocytes # (Auto) 1.82 K/uL (1.2-3.4) Monocytes # (Auto) 0.60 K/uL (0.11-0.59) Eosinophils # (Auto) 0.06 K/uL (0-0.5) Basophils # (Auto) 0.02 K/uL (0-0.2) RDW Standard Deviation 37.4 fL (36.4-46.3) RDW Coefficient of Variation 11.9 % (11.5-14.5) Immature Granulocyte % (Auto) 1.2 % Immature Granulocyte # (Auto) 0.11 K/uL (0.00-0.02) Prothrombin Time 10.5 SECONDS (9.0-12.0) Prothromb Time International Ratio 1.0 (0.9-1.1) Activated Partial Thromboplast Time 25.9 SECONDS (21.0-31.0) Partial Thromboplastin Ratio 1.0 Laboratory results per my review. Medications Administered Medications (Trade) Dose Ordered Sig/Ricki Route Start Time Stop Time Status Last Admin Dose Admin Silver Nitrate/ Potassium Nitrate (Silver Nitrate Applicators) 5 appl STK-MED ONCE .ROUTE 10/27/17 16:57 10/27/17 16:58 DC 10/27/17 16:57 5 APPL Gelatin (Surgifoam Sponge 12-7MM (SMALL)) 2 ea STK-MED ONCE .ROUTE 10/27/17 20:04 10/27/17 20:05 DC 10/27/17 20:46 2 EA Cefazolin Sodium (Ancef Inj) 2,000 mg STK-MED ONCE .ROUTE 10/27/17 20:17 10/27/17 20:18 DC 10/27/17 20:15 2,000 MG Oxymetazoline HCl (Afrin 0.05% Nasal [place]) 75 sprays STK-MED ONCE .ROUTE 10/27/17 20:26 10/27/17 20:27 DC 10/27/17 20:47 75 SPRAYS ED Course ED COURSE: Vital signs were reviewed and showed normal vitals. The patients medical record was reviewed The above diagnostic studies were performed and reviewed. ED treatments and interventions as stated above. 1613: The patient was evaluated in room A4B. A complete history and physical examination was performed. 1628: The patient has declined blood work. 1629: I discussed the patient's case with Ramirez Quezada ENT. He will come to evaluate the patient. 1641: The patient has had a slight increase in bleeding at this time. 1647: The patient is no longer bleeding. 1655: The patient is bleeding again. 1714: Dr. Anton is at bedside. 1757: I reevaluated the patient. He is currently not bleeding. Dr. Anton will be back in 20 minutes. 1830: Dr. Anton has evaluated the patient and feels that he can be discharged home. He will be seeing the patient tomorrow at 0845. 1918: I spoke with Dr. Anton again. I informed him that the patient is bleeding again. He will be taking the patient to the OR. 1940: Upon reevaluation, the patient is stable. I discussed my findings with the patient and he understands and agrees with the treatment plan. Based on the patients age, coexisting illnesses, exam and lab findings the decision to treat as an inpatient was made. The patient remained stable while under my care. The patient will be going to the OR. Medical Decision Patient is a 22-year-old male that presents to the ER from bleeding in the back of his throat. He is close to 10 days out from a tonsillectomy. On exam he has mild venous oozing. Gave the patient cold water mixed with hydrogen peroxide. He had some improvement of his symptoms but shortly thereafter this worsened. I did call ENT shortly after presentation. CBC and INR was unremarkable. Bleeding resolved and then started just prior to the presentation of ENT. He was evaluated and cauterized. Shortly thereafter deemed stable. He rested in the ER for close to an hour and the bleeding restarted. I called ENT back. At this time discussed with patient and family and would call the OR. ENT was gracious enough to take the patient to the OR. Medication Reconcilliation Current Medication List: was personally reviewed by me Blood Pressure Screening Patient's blood pressure: Elevated blood pressure Blood pressure disposition: Elevated BP felt to be situational Consults Time Called: 1627 Consulting Physician: Ramirez Quezada ENT Returned Call: [phone] I discussed the patient's case with him. He will come to evaluate the patient. Impression Primary Impression: Post-tonsillectomy hemorrhage Scribe Attestation The scribe's documentation has been prepared under my direction and personally reviewed by me in its entirety. I confirm that the note above accurately reflects all work, treatment, procedures, and medical decision making performed by me. Departure Information Dispostion Other (OR) Referrals [facility] (PCP) Patient Instructions My [facility]
[2017-10-27] MEDS ORDERED: IV FLUIDS COMPLETED PRN (22:00)
[2017-10-27 22:20] VITALS: BP 151/71; PULSE 85; TEMP 36.9; O2SAT 95; Ht 185.4 cm; Wt 79.6 kg
--- NOTE | 2017-10-27 22:25 | History and Physical ---
History & Physical Date & Time of Service: Oct 27, 2017 at 22:24 Chief Complaint: Bleed From Throat Primary Care Physician: [facility] History of Present Illness Source: patient, family, clinic records, hospital records 22-year-old patient underwent tonsillectomy on 10/17/17 for chronic tonsillitis with previous peritonsillar abscess and peritonsillar cellulitis. Performing surgeon was Dr. Wyatt White. Approximately 1 week later the patient experienced postop bleeding in the back of his throat. He went to the ER on 10/24 , and was observed with no rebleeding. Dr. White was contacted, and advised liquid diet for the next 2 days and to return to the ER for any bleeding or other worsening signs or symptoms. He returned to the ER today with 1 hour of bleeding. He denies any chest pain trouble breathing nausea vomiting or diarrhea Ryann and had no pain in his throat. He reports doing some lifting of items that were left behind prior to the onset of bleeding. Dr. White arrived at bedside and using a headlight and tongue blade was able to see that there was an arterial bleed in the superior pole of his left tonsillar fossa. This was cauterized with several silver nitrate sticks held in the back of his throat for about 30 seconds. After gargling many times, it was clear that all bleeding had stopped. Dr. White advised discharge with close follow-up at that time. However, the patient re-bled while in the ER second time. Therefore , Dr. White decided to take him to the OR this evening. In the OR generalized oozing from the entire left tonsillar fossa granulation tissue was seen. This was stopped with suction electrocautery. The tonsillar fossa was then packed with Surgicel and the anterior and posterior tonsillar pillars were oversewn with suture. Hemostasis was achieved and the patient was transported to PACU for recovery. He is doing well postoperatively and in no pain. He is hemodynamically stable and will be observed overnight per Dr. White's request. Pt is not verbal at this time. Past Medical/Surgical History No past medical history Family History No pertinent family history Social History Smoking Status: Never Smoker Smokeless Tobacco Use: No Alcohol Use: none Drug Use: none Marital Status: single Housing status: lives with roommate Occupational Status: [employer] student Immunizations History of Influenza Vaccine: Unknown History of Tetanus Vaccine?: Unknown History of Pneumococcal: Unknown History of Hepatitis B Vaccine: Unknown Allergies Coded Allergies: No Known Allergies (Unverified , 10/24/17) Home Medications Scheduled Prednisolone (Prelone 15MG/5ML), 1 DOSE PO DAILY Scheduled PRN Hydrocodone/Acetaminophen 5MG/325MG ([place] 5MG/325MG), 1 TAB PO Q6H PRN for Pain Review of Systems At least ten systems were reviewed and negative except as indicated in HPI above. Physical Exam Vital Signs Date Time Temp Pulse Resp B/P (MAP) Pulse Ox O2 Delivery O2 Flow Rate FiO2 10/27/17 22:05 82 16 153/68 97 Oxymask 3 10/27/17 21:55 36.5 80 16 146/72 97 Oxymask 3 10/27/17 21:45 89 16 154/79 99 Oxymask 3 10/27/17 21:35 88 16 150/74 100 Oxymask 3 10/27/17 21:25 93 16 153/87 100 Oxymask 3 10/27/17 21:15 99 16 149/84 99 Oxymask 5 10/27/17 21:09 36.4 98 16 153/73 100 Oxymask 5 10/27/17 19:31 94 138/60 97 Room Air 10/27/17 17:40 103 167/69 97 Room Air 10/27/17 16:09 36.3 97 20 138/82 98 Room Air General Appearance: WD/WN, + mild distress Head: normocephalic, atraumatic Eyes: normal inspection, sclerae normal ENT: + pertinent finding (mucous membranes moist, not able to open mouth wide enough to evaluate surgical area. ) Neck: + pertinent finding (painful submandibular area post op) Respiratory/Chest: chest non-tender, lungs clear, normal breath sounds, no respiratory distress, no accessory muscle use Cardiovascular: regular rate, rhythm, no edema, no gallop, no JVD, no murmur, normal peripheral pulses Abdomen/GI: normal bowel sounds, non tender, soft, no organomegaly Extremities/Musculoskelatal: normal inspection Neurologic/Psych: founding partner II-XII nml as tested, no motor/sensory deficits, normal mood/affect, oriented x 3, + pertinent finding (fatigued with eyes closed for most of exam) Skin: normal color, warm/dry, no rash Diagnostics Laboratory Results 10/27/17 16:50 Red Blood Count 5.10, Mean Corpuscular Volume 85.7, Mean Corpuscular Hemoglobin 30.8, Mean Corpuscular Hemoglobin Concent 35.9, Mean Platelet Volume 9.0, Neutrophils (%) (Auto) 71.3, Lymphocytes (%) (Auto) 20.0, Monocytes (%) (Auto) 6.6, Eosinophils (%) (Auto) 0.7, Basophils (%) (Auto) 0.2, Neutrophils # (Auto) 6.49, Lymphocytes # (Auto) 1.82, Monocytes # (Auto) 0.60, Eosinophils # (Auto) 0.06, Basophils # (Auto) 0.02 Test 10/27/17 16:50 White Blood Count 9.10 K/uL (4.8-10.8) Red Blood Count 5.10 M/uL (4.7-6.1) Hemoglobin 15.7 g/dL (14.0-18.0) Hematocrit 43.7 % (42-52) Mean Corpuscular Volume 85.7 fL (80-100) Mean Corpuscular Hemoglobin 30.8 pg (25-34) Mean Corpuscular Hemoglobin Concent 35.9 g/dl (32-36) Platelet Count 239 K/uL (130-400) Mean Platelet Volume 9.0 fL (7.4-10.4) Neutrophils (%) (Auto) 71.3 % Lymphocytes (%) (Auto) 20.0 % Monocytes (%) (Auto) 6.6 % Eosinophils (%) (Auto) 0.7 % Basophils (%) (Auto) 0.2 % Neutrophils # (Auto) 6.49 K/uL (1.4-6.5) Lymphocytes # (Auto) 1.82 K/uL (1.2-3.4) Monocytes # (Auto) 0.60 K/uL (0.11-0.59) Eosinophils # (Auto) 0.06 K/uL (0-0.5) Basophils # (Auto) 0.02 K/uL (0-0.2) RDW Standard Deviation 37.4 fL (36.4-46.3) RDW Coefficient of Variation 11.9 % (11.5-14.5) Immature Granulocyte % (Auto) 1.2 % Immature Granulocyte # (Auto) 0.11 K/uL (0.00-0.02) Prothrombin Time 10.5 SECONDS (9.0-12.0) Prothromb Time International Ratio 1.0 (0.9-1.1) Activated Partial Thromboplast Time 25.9 SECONDS (21.0-31.0) Partial Thromboplastin Ratio 1.0 Results Past 24 Hours Test 10/27/17 16:50 Range/Units White Blood Count 9.10 4.8-10.8 K/uL Red Blood Count 5.10 4.7-6.1 M/uL Hemoglobin 15.7 14.0-18.0 g/dL Hematocrit 43.7 42-52 % Mean Corpuscular Volume 85.7 80-100 fL Mean Corpuscular Hemoglobin 30.8 25-34 pg Mean Corpuscular Hemoglobin Concent 35.9 32-36 g/dl Platelet Count 239 130-400 K/uL Mean Platelet Volume 9.0 7.4-10.4 fL Neutrophils (%) (Auto) 71.3 % Lymphocytes (%) (Auto) 20.0 % Monocytes (%) (Auto) 6.6 % Eosinophils (%) (Auto) 0.7 % Basophils (%) (Auto) 0.2 % Neutrophils # (Auto) 6.49 1.4-6.5 K/uL Lymphocytes # (Auto) 1.82 1.2-3.4 K/uL Monocytes # (Auto) 0.60 0.11-0.59 K/uL Eosinophils # (Auto) 0.06 0-0.5 K/uL Basophils # (Auto) 0.02 0-0.2 K/uL RDW Standard Deviation 37.4 36.4-46.3 fL RDW Coefficient of Variation 11.9 11.5-14.5 % Immature Granulocyte % (Auto) 1.2 % Immature Granulocyte # (Auto) 0.11 0.00-0.02 K/uL Prothrombin Time 10.5 9.0-12.0 SECONDS Prothromb Time International Ratio 1.0 0.9-1.1 Activated Partial Thromboplast Time 25.9 21.0-31.0 SECONDS Partial Thromboplastin Ratio 1.0 Impression Assessment and Plan 22-year-old [employer] student presents for post tonsillectomy bleeding, taken to the OR, recovering postoperatively overnight. Post operative tonsillar arterial cautery 2/2 post tonsillectomy bleeding- no anemia or coagulopathy, liquid narcotic as needed pain, continue supportive care and monitoring overnight with plans for discharge tomorrow as long as patient is hemodynamically stable. He has a follow-up appointment with Dr. Anton on Sunday morning at 8:45 AM and is to only ingest liquid a liquid diet until that time. Currently hemodynamically stable. CBC in a.m.. DVT prophylaxis-SCDs/ambulation Full code Dispo-telemetry overnight with discharge in a.m. as long as hemodynamically stable. Maliha Fowler DO [facility] hospitalist Resuscitation Status VTE Prophylaxis Will order VTE Prophylaxis: No Reason for no VTE drug order: Treatment not indicated Reason no Mechanical VTE Order: Treatment not indicated
[2017-10-27 22:46] VITALS: BP 153/73; PULSE 82; O2SAT 95
[2017-10-27 23:00] VITALS: BP 161/68; PULSE 91; O2SAT 95
[2017-10-27] MEDS: ACETAMINOPHEN/HYDROCODONE ELIX 15 ML/CUP UDP PO PRN (23:59)
[2017-10-28 00:01] VITALS: BP 160/68; PULSE 84; TEMP 36.6; O2SAT 96
[2017-10-28 00:54] VITALS: BP 153/65; PULSE 75; TEMP 36.8; O2SAT 95
[2017-10-28 03:55] VITALS: BP 137/68; PULSE 101; TEMP 36.9; O2SAT 96
[2017-10-28] MEDS: ACETAMINOPHEN/HYDROCODONE ELIX 15 ML/CUP UDP PO PRN (06:53)
[2017-10-28 06:58] LABS: HEMATOCRIT 41.9 % (42-52); HEMOGLOBIN 15.2 g/dL (14.0-18.0); MEAN CELL VOLUME 84.8 fL (80-100); MEAN CORPUSCULAR HEMOGLOBIN 30.8 pg (25-34); MEAN CORPUSCULAR HGB CONC 36.3 g/dl (32-36); MEAN PLATELET VOLUME 8.9 fL (7.4-10.4); PLATELET COUNT 249 K/uL (130-400); RED CELL DISTRIBUTION WIDTH CV 11.8 % (11.5-14.5); RED CELL DISTRIBUTION WIDTH SD 36.5 fL (36.4-46.3); WHITE BLOOD COUNT 13.67 K/uL (4.8-10.8)
[2017-10-28 08:06] VITALS: BP 153/70; PULSE 86; TEMP 37; O2SAT 97
[2017-10-28] MEDS ORDERED: BENZOCAINE 20% (ORAJEL) 11.9 GM TUBE MT PRN (09:30)
--- NOTE | 2017-10-28 09:33 | Progress Note ---
Medicine Progress Note Date & Time of Visit: Oct 28, 2017 at 09:27. Subjective seen sitting up in bed, comfortable his mother is at the bedside appears tired gestures and types on his iphone to answer questions feels ok overall no bleeding overnight pain is mild denies chest pain, dyspnea, nausea reports right side of the tongue is swollen- but not painful no other symptoms Objective Last 8 Hrs Date Time Temp Pulse Resp B/P (MAP) Pulse Ox O2 Delivery O2 Flow Rate FiO2 10/28/17 08:06 37.0 86 16 153/70 (97) 97 Room Air 10/28/17 08:00 Room Air Oxymask 10/28/17 04:00 Room Air Oxymask 10/28/17 03:55 36.9 101 16 137/68 (91) 96 Room Air Physical Exam: General- oriented x 3, not in distress, speaks in sentences with no effort Head- atraumatic Eyes- PERRL, EOMI, anicteric ENT- left tonsillar area with clot/cauterized area- no bleeding mild swelling right side of the tongue- no laceration noted Neck- supple, no JVD, no adenopathy, no thyromegaly Lungs- clear breath sounds bilaterally Heart- regular rhythm; no murmur, normal rate Abdomen- normal bowel sounds, soft, nontender Extremities- no pretibial edema, no calf tenderness; peripheral pulses intact Neuro- alert, oriented x 3; no gross deficits Skin- warm & dry Laboratory Results: Last 24 Hours Test 10/27/17 16:50 10/28/17 06:44 White Blood Count 9.10 K/uL 13.67 K/uL Red Blood Count 5.10 M/uL 4.94 M/uL Hemoglobin 15.7 g/dL 15.2 g/dL Hematocrit 43.7 % 41.9 % Mean Corpuscular Volume 85.7 fL 84.8 fL Mean Corpuscular Hemoglobin 30.8 pg 30.8 pg Mean Corpuscular Hemoglobin Concent 35.9 g/dl 36.3 g/dl Platelet Count 239 K/uL 249 K/uL Mean Platelet Volume 9.0 fL 8.9 fL Neutrophils (%) (Auto) 71.3 % Lymphocytes (%) (Auto) 20.0 % Monocytes (%) (Auto) 6.6 % Eosinophils (%) (Auto) 0.7 % Basophils (%) (Auto) 0.2 % Neutrophils # (Auto) 6.49 K/uL Lymphocytes # (Auto) 1.82 K/uL Monocytes # (Auto) 0.60 K/uL Eosinophils # (Auto) 0.06 K/uL Basophils # (Auto) 0.02 K/uL RDW Standard Deviation 37.4 fL 36.5 fL RDW Coefficient of Variation 11.9 % 11.8 % Immature Granulocyte % (Auto) 1.2 % Immature Granulocyte # (Auto) 0.11 K/uL Prothrombin Time 10.5 SECONDS Prothromb Time International Ratio 1.0 Activated Partial Thromboplast Time 25.9 SECONDS Partial Thromboplastin Ratio 1.0 Assessment & Plan 22-year-old [employer] student presents for post tonsillectomy bleeding, taken to the OR, recovering postoperatively overnight. Post Tonsillectomy Hemorrhage, Generalized oozing of Left Tonsilar Fossa - s/p tonsillar arterial cautery - no recurrence of bleeding Hg stayed at 15 - discussed with Dr. White - continue STRICT LIQUIDS ONLY DIET PRN liquid Lortab - d/c home today ff up with Dr. White tomorrow AM Current Inpatient Medications: Current Inpatient Medications Medications (Trade) Dose Ordered Sig/Ricki Route Start Time Stop Time Status Last Admin Dose Admin Ondansetron HCl (Zofran Inj) 4 mg ONE PRN IV 10/27/17 20:00 Ondansetron HCl (Zofran Inj) 4 mg Q6H PRN IV 10/27/17 21:30 11/26/17 21:29 10/28/17 03:52 4 MG Miscellaneous (Iv Fluids Completed) 1 ea PRN PRN N/A 10/27/17 22:00 10/27/18 21:59 Acetaminophen/ Hydrocodone Bitart (Lortab Elixir) 15 ml Q6H PRN PO 10/27/17 23:15 11/10/17 23:14 10/28/17 06:53 15 ML
[2017-10-28] MEDS: BOOST VANILLA PO SCH ×2 (10:38→14:00)
[2017-10-28 11:08] VITALS: BP 160/75; PULSE 78; TEMP 36.9; O2SAT 97
[2017-10-28] MEDS ORDERED: SODIUM CHLORIDE 0.9% 1000ML 1,000 ML IV SCH (16:00)
[2017-10-28] MEDS ORDERED: ACETAMINOPHEN IV 650 MG in EMPTY BAG 0 ML IV SCH (16:15)
[2017-10-28] MEDS ORDERED: HYDROCODONE/APAP ELIX 60ML HOME PACK PO PRN (18:30)
[2017-10-28] MEDS ORDERED: HYDR1SOL10 PO (18:37)
--- NOTE | 2017-10-28 18:45 | Discharge Instructions ---
Discharge Instructions Date of Service Oct 28, 2017. Admission Reason for Admission: Bleeding, Post Operative State Discharge Discharge Diagnosis / Problem: POST TONSILLECTOMY HEMORRHAGE Discharge Goals Goal(s): Diagnostic testing, Therapeutic intervention Activity Recommendations Activity Limitations: as noted below (NO HEAVY EXERTION UNTIL RE-EVALUATED BY DR. HURST) Lifting Limitations: until after follow-up appointment Exercise/Sports Limitations: until after follow-up appointment Shower/Bathe: no limitations . Instructions / Follow-Up Instructions / Follow-Up STRICT LIQUID DIET ONLY. ENSURE ADEQUATE DAILY FLUID INTAKE. 7-8 GLASSES OF WATER A DAY. DRINK BOOST AT LEAST THREE TIMES A DAY. NO HEAVY EXERTION UNTIL RE-EVALUATED BY DR. HURST. DO NOT DRIVE WHILE TAKING LORTAB ELIXIR. RETURN TO ER IMMEDIATELY IF WITH RECURRENCE OF SYMPTOMS. FOLLOW UP WITH DR. HURST TOMORROW SCHEDULED. FOLLOW UP WITH YOUR PRIMARY CARE PHYSICIAN IN 1 WEEK. Current Hospital Diet Patient's current hospital diet: Clear Liquid Diet Discharge Diet Recommended Diet: Clear Liquid Diet Procedures Procedures Performed: Control of Post Tonsillectomy Hemorrhage Pending Studies Studies pending at discharge: no Medical Emergencies . Who to Call and When: Medical Emergencies: If at any time you feel your situation is an emergency, please call 911 immediately. . Non-Emergent Contact Non-Emergency issues call your: Primary Care Provider, Surgeon (DR. HURST ( [phone] ) Call Non-Emergent contact if: you have a fever, your pain is not controlled, your pain is worsening, wound has increased drainage, wound has increased pain, you have any medication questions . . "Provider Documentation" section prepared by Rigo Davila. .
[2017-10-28 18:49] VITALS: BP 160/75; PULSE 78; TEMP 36.9; O2SAT 97
--- NOTE | 2017-10-28 18:51 | Discharge Summary ---
Discharge Summary Date of Service Oct 28, 2017. Discharge Summary Admission Date: Oct 27, 2017 at 21:42 Discharge Date: Oct 28, 2017 Discharge Disposition: Home Principal Diagnosis: Post Tonsillectomy Hemorrhage, Generalized oozing of Left Tonsilar Fossa Procedures: s/p Tonsillar arterial cautery Consultations: ENT Dr. Hurst Pending Studies/Follow-Up: Please refer to hospital course below. Medication Reconciliation New Medications: Hydrocodone-Acetaminophen (Hydrocodone/Acetami 7.5/325MG 15ML) 1 Josefina Josefina 15 ML PO Q6H PRN for Pain for 3 Days, #180 ML 0 [address]ills no driving while taking this medication Discontinued Medications: Hydrocodone/Acetaminophen 5MG/325MG ([place] 5MG/325MG) Unknown Strength Tab 1 TAB PO Q6H PRN for Pain, TAB PRN PAIN Prednisolone (Prelone 15MG/5ML) Unknown Strength Syrp 1 DOSE PO DAILY, ML Admission Information HPI (per Admitting provider): 22-year-old patient underwent tonsillectomy on 10/17/17 for chronic tonsillitis with previous peritonsillar abscess and peritonsillar cellulitis. Performing surgeon was Dr. Wyatt White. Approximately 1 week later the patient experienced postop bleeding in the back of his throat. He went to the ER on 10/24 , and was observed with no rebleeding. Dr. White was contacted, and advised liquid diet for the next 2 days and to return to the ER for any bleeding or other worsening signs or symptoms. He returned to the ER today with 1 hour of bleeding. He denies any chest pain trouble breathing nausea vomiting or diarrhea Ryann and had no pain in his throat. He reports doing some lifting of items that were left behind prior to the onset of bleeding. Dr. White arrived at bedside and using a headlight and tongue blade was able to see that there was an arterial bleed in the superior pole of his left tonsillar fossa. This was cauterized with several silver nitrate sticks held in the back of his throat for about 30 seconds. After gargling many times, it was clear that all bleeding had stopped. Dr. White advised discharge with close follow-up at that time. However, the patient re-bled while in the ER second time. Therefore , Dr. White decided to take him to the OR this evening. In the OR generalized oozing from the entire left tonsillar fossa granulation tissue was seen. This was stopped with suction electrocautery. The tonsillar fossa was then packed with Surgicel and the anterior and posterior tonsillar pillars were oversewn with suture. Hemostasis was achieved and the patient was transported to PACU for recovery. He is doing well postoperatively and in no pain. He is hemodynamically stable and will be observed overnight per Dr. White's request. Pt is not verbal at this time. Physical Exam (per Admitting): General Appearance: WD/WN, + mild distress Head: normocephalic, atraumatic Eyes: normal inspection, sclerae normal ENT: + pertinent finding (mucous membranes moist, not able to open mouth wide enough to evaluate surgical area. 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 Post Tonsillectomy Hemorrhage, Generalized oozing of Left Tonsilar Fossa - s/p tonsillar arterial cautery - no recurrence of bleeding Hg stayed at 15 - discussed with Dr. White - continue STRICT LIQUIDS ONLY DIET PRN liquid Lortab - given IV fluids and IV Ofirmev patient reports pain improved to 3/10 denies throat pain and states he will be able to drink lots of fluids and Boost drink at home, which he was highly encouraged - d/c home today ff up with Dr. White tomorrow AM Elevated Blood Pressure - likely from Stress, Pain - monitor as outpatient discussed plan of care with patient and his mother, they are agreeable and comfortable with the plan of care Total time spent on discharge = 40 minutes This includes examination of the patient, discharge planning, medication reconciliation, and communication with other providers. Discharge Instructions Discharge Instructions Date of Service Oct 28, 2017. Admission Reason for Admission: Bleeding, Post Operative State Discharge Discharge Diagnosis / Problem: POST TONSILLECTOMY HEMORRHAGE Discharge Goals Goal(s): Diagnostic testing, Therapeutic intervention Activity Recommendations Activity Limitations: as noted below (NO HEAVY EXERTION UNTIL RE-EVALUATED BY DR. HURST) Lifting Limitations: until after follow-up appointment Exercise/Sports Limitations: until after follow-up appointment Shower/Bathe: no limitations . Instructions / Follow-Up Instructions / Follow-Up STRICT LIQUID DIET ONLY. ENSURE ADEQUATE DAILY FLUID INTAKE. 7-8 GLASSES OF WATER A DAY. DRINK BOOST AT LEAST THREE TIMES A DAY. NO HEAVY EXERTION UNTIL RE-EVALUATED BY DR. HURST. DO NOT DRIVE WHILE TAKING LORTAB ELIXIR. RETURN TO ER IMMEDIATELY IF WITH RECURRENCE OF SYMPTOMS. FOLLOW UP WITH DR. HURST TOMORROW SCHEDULED. FOLLOW UP WITH YOUR PRIMARY CARE PHYSICIAN IN 1 WEEK. Current Hospital Diet Patient's current hospital diet: Clear Liquid Diet Discharge Diet Recommended Diet: Clear Liquid Diet Procedures Procedures Performed: Control of Post Tonsillectomy Hemorrhage Pending Studies Studies pending at discharge: no Medical Emergencies . Who to Call and When: Medical Emergencies: If at any time you feel your situation is an emergency, please call 911 immediately. . Non-Emergent Contact Non-Emergency issues call your: Primary Care Provider, Surgeon (DR. HURST ) Call Non-Emergent contact if: you have a fever, your pain is not controlled, your pain is worsening, wound has increased drainage, wound has increased pain, you have any medication questions . . "Provider Documentation" section prepared by Rigo Davila. .
== END 2017-10-28 19:10 | disposition home or self-care (01) ==
LOC: C.EDB 16:08 → C.2E 21:42 → ENRESERV 22:05
PROVIDERS: ADMIT Hospitalist; ATTEND Internal Medicine
DX: J95.831 Postprocedural hemorrhage of a respiratory system organ or structure following other procedure (principal)